=== PATIENT | female | born 1955 | race Caucasian/White ===

== ENCOUNTER 2016-09-15 11:48 | Inpatient (IN) | payer OTHER ==
[~2016-09-15] VITALS: Ht 160 cm; Wt 46.4 kg
[2016-09-15] MEDS ORDERED: morphine 4 MG/ML VIAL IV STA (16:42)
[2016-09-15] MEDS ORDERED: ONDANSETRON 4 MG INJ IV STA (16:42)
[2016-09-15] MEDS ORDERED: SOD CHLORIDE 0.9% 1,000 ML IV STA (16:42)
[2016-09-15 16:58] LABS: BASOPHIL # 0.1 10^3/ul (0.0-0.1); BASOPHILS % 0.8 % (0.0-2.0); EOSINOPHILS # 0.2 10^3/ul (0.0-0.5); EOSINOPHILS % 2.4 % (0.0-7.0); HEMATOCRIT 45.9 % (37.0-47.0); HEMOGLOBIN 15.7 g/dl (12.0-16.0); LYMPHOCYTES # 2.5 10^3/ul (0.8-2.9); LYMPHOCYTES % 37.6 % (15.0-51.0); MEAN CORPUSCULAR HEMOGLOBIN 29.8 pg (29.0-33.0); MEAN CORPUSCULAR HGB CONC 34.3 g/dl (32.0-37.0); MEAN CORPUSCULAR VOLUME 86.9 fl (82.0-101.0); MEAN PLATELET VOLUME 8.9 fl (7.4-10.4); MONOCYTE # 0.6 10^3/ul (0.3-0.9); MONOCYTES % 8.3 % (0.0-11.0); NEUTROPHIL # 3.4 10^3/ul (1.6-7.5); NEUTROPHILS % 50.9 % (39.0-77.0); PLATELET COUNT 234 10^3/UL (140-440); RED BLOOD COUNT 5.28 10^6/ul (4.20-5.40); RED CELL DISTRIBUTION WIDTH 13.6 % (11.5-14.5); UNCORRECTED WBC 6.8 10^3/ul (4.8-10.8); WHITE BLOOD COUNT 6.8 10^3/ul (4.8-10.8)
[2016-09-15] MEDS ORDERED: TRAM-40 PO (17:00)
[2016-09-15 17:01] LABS: ADD UMIC YES; URINE BILIRUBIN (Dip) NEGATIVE (NEGATIVE); URINE BLOOD (Dip) 3+ (NEGATIVE); URINE GLUCOSE (Dip) NEGATIVE (NEGATIVE); URINE KETONES (Dip) TRACE (NEGATIVE); URINE LEUKOCYTE ESTERASE (Dip) 1+ (NEGATIVE); URINE NITRITE (Dip) NEGATIVE (NEGATIVE); URINE TOTAL PROTEIN (Dip) NEGATIVE (NEGATIVE); URINE UROBILINOGEN (Dip) 0.2 E.U./dL (0.1-1.0)
[2016-09-15 17:03] LABS: CONDITION 1
[2016-09-15 17:07] LABS: ALBUMIN 4.5 g/dl (3.3-4.9)
[2016-09-15 17:08] LABS: POTASSIUM 4.2 mmol/L (3.5-5.1); URINE COLOR YELLOW (YELLOW)
[2016-09-15 17:10] LABS: ALBUMIN/GLOBULIN RATIO 1.18; BACTERIA,URINE FEW; BILIRUBIN,INDIRECT 0.1 mg/dl (0-1.1); BILIRUBIN,TOTAL 0.1 mg/dl (0.2-1.3); CREATININE 0.9 mg/dl (0.44-1.00); TOTAL PROTEIN 8.3 g/dl (6.1-8.1); TRANSITIONAL EPI CELLS,URINE MODERATE; URINE RBCS 25-50 /HPF (0)
[2016-09-15 17:11] LABS: CALCIUM 9.7 mg/dl (8.4-10.2)
[2016-09-15] MEDS ORDERED: SOD CHLORIDE 0.9% 100 ML ONE (18:40)
[2016-09-15] MEDS ORDERED: IODIXANOL LOCM 100 ML BTL ONE (18:40)
--- NOTE | 2016-09-15 19:20 | RADRPT ---
PROCEDURE: CT abdomen and pelvis with. contrast. CLINICAL INDICATION: Abdominal pain. TECHNIQUE: IV contrast enhanced CT examination of the abdomen and pelvis, with axial, sagittal and coronal reformatted images. 100 cc Isovue 300 nonionic IV contrast were employed. Automated dose e xposure control was employed. CTDI: 4.22 mGy and DLP: 209.77 mGy-cm. COMPARISON: None. FINDINGS: CT abdomen: Mild fibrotic banding bilateral lung bases, and the lung bases are otherwise clear. The heart size is normal, without pericardial thickening or effusion. The liver is normal in size and density without focal mass or intrahepatic biliary dilatation. The spleen is normal in size and homogeneous in density. The stomach is partially collapsed, but is farooq ssly unremarkable. The pancreas as visualized is normal. The gallbladder and biliary tree are unre markable and there is no evidence for biliary dilatation. The adrenal glands are symmetric and norm al. The kidneys are symmetrically unremarkable as well. Bilateral nonobstructing renal calculi, wit h large calculus measuring up to about 11 mm in the left kidney. The aorta is of normal caliber. Aortic vascular calcifications are present. There is no retroperit hunter lymphadenopathy. The jhonny hepatis region is clear. Change in caliber in the third portion of the duodenum is nonspecific, however, may suggest a degree of impingement between mesenteric venous structures and the abdominal aorta in this region, with a consequent mild degree of obstruction in the third portion of the duodenum. The second portion of t he duodenum is enlarged measuring up to 35 mm in AP diameter and the third portion of the duodenum m easures about 16 mm in AP diameter. In the region of impingement diameter of the third portion of th e duodenum measures 4 mm in the AP dimension. Mild to moderate stool burden in the right and transverse colon. The bowel and mesentery, as visuali zed, are otherwise unremarkable. CT pelvis: The small bowel loops situated within the pelvis are unremarkable. The pelvic organs are normal. T he pelvic sidewalls and inguinal regions are clear. The sigmoid colon contains moderate diverticulo sis; and rectum is unremarkable. No mass, lymphadenopathy, or free fluid is seen. No acute inflamm ation is seen. The appendix is unremarkable. Moderate stool burden in the cecum. The surrounding osseous structures are remarkable for mild degenerative spondylosis of the spine. N o osteolytic or osteoblastic lesion is detected. IMPRESSION: 1. Possible mild degree of intermittent obstruction of the third portion of the duodenum between me senteric venous structures and the abdominal aorta, with abrupt change in caliber between the second and third portions of the duodenum. 2. Moderate stool burden in the colon 3. Nonobstructing renal stones. 4. The appendix is unremarkable. 5. Moderate diverticulosis in the sigmoid colon. 6. Otherwise, no acute process in the abdomen or pelvis. RPTAT: [facility] Physician [place] Date Time Electronically viewed and signed by Physician Jersey on 09/15/2016 19:20 RS/
--- NOTE | 2016-09-15 19:58 | ERA ---
ER Documentation Chief Complaint Date/Time DATE: 09/15/16 TIME: 19:57 Chief Complaint abd pain with nausea/vomiting x2days HPI Patient is a 61-year-old female who comes into the emergency department reporting abdominal pain with nausea and vomiting for 2 days. She states the abdominal pain is predominantly in the right lower quadrant. She states that she has not had a bowel movement for the last several days and has not passed gas for a week. Denies any fever, dysuria, hematuria, flank or back pain. Nothing makes his pain better or worse. She has had a bowel obstruction in the past but is not sure if this pain is the same pain that. She denies any chest pain, shortness of breath, coughing, congestion, sore throat, or otalgia. ROS All systems reviewed and are negative except as per history of present illness. Medications Home Meds Reported Medications Tramadol Hcl* (Ultram*) 50 Mg Tablet, 50 MG PO Q6H Y for PAIN, TAB 09/15/16 Allergies Allergies: Coded Allergies: acetaminophen (Verified Allergy, Mild, itchy, 09/15/16) hydrocodone bit (Verified Allergy, Mild, itchy, 09/15/16) hydrocodone (Unverified Allergy, Unknown, 09/15/16) ketorolac (Unverified Allergy, Unknown, 09/15/16) PMhx/Soc History of Surgery: No Anesthesia Reaction: No Hx Neurological Disorder: No Hx Respiratory Disorders: Yes (COPD) Hx Cardiac Disorders: No Hx Psychiatric Problems: No Hx Miscellaneous Medical Probl: Yes (BACK PAIN) Hx Alcohol Use: No Hx Substance Use: No Hx Tobacco Use: No Smoking Status: Current every day smoker FmHx Family History: No diabetes Physical Exam Vitals Vital Signs Date Time Temp Pulse Resp B/P Pulse Ox O2 Delivery O2 Flow Rate FiO2 09/15/16 19:37 80 15 117/86 97 Room Air 09/15/16 17:03 90 18 130/103 100 Room Air 09/15/16 11:51 98.4 84 22 134/74 98 Physical Exam Const: Well-developed thin female lying on the bed tearful Head: Atraumatic normocephalic Eyes: Normal Conjunctiva ENT: Normal External Ears, Nose and Mouth. Neck: Full range of motion..~ No meningismus. Resp: Clear to auscultation bilaterally Cardio: Regular rate and rhythm, no murmurs Abd: Soft, diffusely tender to palpation, no audible bowel sounds, no rebound , no guarding Skin: No petechiae or rashes Back: No midline or flank tenderness Ext: No cyanosis, or edema Neur: Awake and alert Psych: Normal Mood and Affect Result Diagram: 09/15/16 1650 09/15/16 1650 Results 24 hrs Laboratory Tests Test 09/15/16 16:50 Alanine Aminotransferase (ALT/SGPT) 44IU/L Albumin 4.5g/dl Albumin/Globulin Ratio 1.18 Alkaline Phosphatase 143IU/L Anion Gap 19 Aspartate Amino Transf (AST/SGOT) 34IU/L Basophils # 0.110^3/ul Basophils % 0.8% Blood Urea Nitrogen 17mg/dl Calcium Level 9.7mg/dl Carbon Dioxide Level 31mmol/L Chloride Level 99mmol/L Creatinine 0.90mg/dl Direct Bilirubin 0.00mg/dl Eosinophils # 0.210^3/ul Eosinophils % 2.4% Globulin 3.80g/dl Glucose Level 77mg/dl Hematocrit 45.9% Hemoglobin 15.7g/dl Indirect Bilirubin 0.1mg/dl Lipase 30U/L Lymphocytes # 2.510^3/ul Lymphocytes % 37.6% Mean Corpuscular Hemoglobin 29.8pg Mean Corpuscular Hemoglobin Concent 34.3g/dl Mean Corpuscular Volume 86.9fl Mean Platelet Volume 8.9fl Monocytes # 0.610^3/ul Monocytes % 8.3% Neutrophils # 3.410^3/ul Neutrophils % 50.9% Nucleated Red Blood Cells # 0.010^3/ul Nucleated Red Blood Cells % 0.0/100WBC Platelet Count 51941^3/UL Potassium Level 4.2mmol/L Red Blood Count 5.2810^6/ul Red Cell Distribution Width 13.6% Sodium Level 145mmol/L Total Bilirubin 0.1mg/dl Total Protein 8.3g/dl Urine Bacteria FEW Urine Bilirubin NEGATIVE Urine Clarity SLIGHTLY CLOUDY Urine Color YELLOW Urine Glucose NEGATIVE% Urine Hemoglobin 3+ Urine Ketones TRACE Urine Leukocyte Esterase 1+ Urine Microscopic RBC 25-50/HPF Urine Microscopic WBC 10-25/HPF Urine Nitrite NEGATIVE Urine Specific [place] 1.025 Urine Total Protein NEGATIVE Urine Transitional Epithelial Cells MODERATE Urine Urobilinogen 0.2 E.U./dL Urine pH 5.5 White Blood Count 6.810^3/ul Current Medications Medications (Trade) Dose Ordered Sig/Roxy Route PRN Reason Start Time Stop Time Status Last Admin Dose Admin Sodium Chloride (NS) 1,000 ml @ 1,000 mls/hr Q1H STAT IV 09/15/16 16:42 09/15/16 17:41 DC 09/15/16 16:53 Morphine Sulfate (morphine) 4 mg ONCE STAT IV 09/15/16 16:42 09/15/16 16:44 DC 09/15/16 16:53 Ondansetron HCl (Zofran Inj) 4 mg ONCE STAT IV 09/15/16 16:42 09/15/16 16:44 DC 09/15/16 16:53 IV Flush 10 ml 10 ml STK-MED ONCE .ROUTE 09/15/16 18:40 09/15/16 18:41 DC 09/15/16 19:14 Sodium Chloride (NS) 100 ml @ ud STK-MED ONCE .ROUTE 09/15/16 18:40 09/15/16 18:41 DC 09/15/16 19:14 Iodixanol (Visipaque Locm) 100 ml STK-MED ONCE .ROUTE 09/15/16 18:40 09/15/16 18:41 DC 09/15/16 19:15 Procedures/MDM CT of the abdomen and pelvis was interpreted as a small bowel obstruction. 1999: An NG tube has been ordered to low wall suction. I have consulted her primary care physician for admission and further management of the patient. Departure Diagnosis: Primary Impression: Small bowel obstruction Additional Impression: Abdominal pain Qualified Code: R10.84 - Generalized abdominal pain Condition: HASEEB Ponce Sep 15, 2016 19:58
[2016-09-15] MEDS ORDERED: morphine 2 MG INJ IV PRN (20:30)
[2016-09-15] MEDS ORDERED: ALBUTEROL/IPRATROPIUM (NEB) 3 ML AMP HHN PRN (20:30)
[2016-09-15] MEDS ORDERED: NACL 0.9% 3 ML SYG IV SCH (20:30)
[2016-09-15] MEDS ORDERED: LORAZEPAM 2 MG INJ IV ONE (21:30)
--- NOTE | 2016-09-15 22:08 | RADRPT ---
PROCEDURE: XR Chest. CLINICAL INDICATION: Nasogastric tube placement. TECHNIQUE: Single frontal view of the chest was obtained COMPARISON: Chest dated 11/25/2015. FINDINGS: Nasogastric tube in place with tip and side port in the proximal stomach. Mild cardiomegaly. Mild bibasilar atelectasis versus airspace disease. There is no pleural effusion or pneumothorax. IMPRESSION: Nasogastric tube in place with tip and side port in the proximal stomach, and consider advancing sergio e about 5 cm and re-imaging. RPTAT: [facility] Physician [place] Date Time Electronically viewed and signed by Physician Jersey on 09/15/2016 22:07 RS/
[2016-09-15 22:45] VITALS: BP 125/75; PULSE 82; RESP 19
[2016-09-15 23:00] VITALS: Ht 160 cm; Wt 46.4 kg
[2016-09-15] MEDS ORDERED: VITAMIN A & D 5 GM OINT PACKET TOP ONE (23:04)
[2016-09-15] MEDS: D5W-0.45 NACL + KCL 20 MEQ 1,000 ML IV SCH (23:09)
[2016-09-15] MEDS: HYDROmorphONE 2 MG/ML SYG IV PRN (23:41)
[2016-09-16 00:20] VITALS: BP_SYST 126; BP_SYST 146; BP_DIAS 53; RESP 18
[2016-09-16] MEDS: HYDROmorphONE 2 MG/ML SYG IV PRN ×5 (03:19→20:14)
[2016-09-16 03:30] VITALS: BP 124/68; PULSE 80
[2016-09-16] MEDS ORDERED: HYDROmorphONE 2 MG/ML SYG IV PRN (04:30)
[2016-09-16] MEDS: PANTOPRAZOLE 40 MG INJ IV SCH (05:10)
[2016-09-16] MEDS: LORAZEPAM 2 MG INJ IV PRN ×2 (05:11→21:56)
[2016-09-16 06:04] LABS: INR 0.94; PARTIAL THROMBOPLASTIN TIME 29.4 Sec (25.0-35.0); PROTIME 12.6 Sec (12.2-14.2)
[2016-09-16 06:07] LABS: BASOPHILS % 0.6 % (0.0-2.0); EOSINOPHILS # 0.3 10^3/ul (0.0-0.5); EOSINOPHILS % 4.6 % (0.0-7.0); HEMATOCRIT 42.7 % (37.0-47.0); HEMOGLOBIN 14.3 g/dl (12.0-16.0); LYMPHOCYTES # 1.9 10^3/ul (0.8-2.9); LYMPHOCYTES % 31.9 % (15.0-51.0); MEAN CORPUSCULAR HEMOGLOBIN 29.5 pg (29.0-33.0); MEAN CORPUSCULAR HGB CONC 33.6 g/dl (32.0-37.0); MEAN CORPUSCULAR VOLUME 87.7 fl (82.0-101.0); MEAN PLATELET VOLUME 9.6 fl (7.4-10.4); MONOCYTE # 0.5 10^3/ul (0.3-0.9); MONOCYTES % 8.7 % (0.0-11.0); NEUTROPHIL # 3.2 10^3/ul (1.6-7.5); NEUTROPHILS % 54.2 % (39.0-77.0); PLATELET COUNT 192 10^3/UL (140-440); RED BLOOD COUNT 4.87 10^6/ul (4.20-5.40); RED CELL DISTRIBUTION WIDTH 13.9 % (11.5-14.5); UNCORRECTED WBC 5.9 10^3/ul (4.8-10.8); WHITE BLOOD COUNT 5.9 10^3/ul (4.8-10.8)
--- NOTE | 2016-09-16 06:16 | HP ---
DATE OF ADMISSION: 09/15/2016 CHIEF COMPLAINT: Abdominal pain. REASON FOR ADMISSION: Small-bowel obstruction. HISTORY OF PRESENT ILLNESS: This is a 61-year-old female with a past medical history of COPD, histo ry of previous fractured humerus in 01/2012, chronic back pain, presented with abdominal pain. She had initial workup done in the emergency room including a CT abdomen and pelvis with contrast that was suspicious for a small bowel obstructions. The patient had NG tube placement and she is getting admitted to the med/surg floor for IV fluids and general surgery consultation. REVIEW OF SYSTEMS: As per HPI. Positive for abdominal pain, nausea. Other 12 point review of syst ems has been obtained and is negative except what is mentioned in the history of present illness. PAST MEDICAL HISTORY: COPD, history of chronic back pain. PAST SURGICAL HISTORY: History of humerus fracture in January 2012. SOCIAL HISTORY: No smoking, alcohol or recreational drug use. FAMILY HISTORY: Not available. PHYSICAL EXAMINATION: VITAL SIGNS: Temperature is 98.4, heart rate 80, respirations 15, blood pressure 117/86, saturation 97% on room air. GENERAL: Awake, alert, in no distress. HEENT: Normal. Oropharynx clear. NECK: No JVD, no lymphadenopathy. LUNGS: Clear to auscultation. No crackles, no wheezes. HEART: S1, S2, with regular rhythm, no murmur. ABDOMEN: Soft, minimally tender to palpation diffusely. No crackles, no rebound. Bowel sounds are hypoactive. EXTREMITIES: No clubbing, cyanosis, or edema. NEUROLOGICAL: Nonfocal, intact. PSYCHIATRIC: Appropriate affect and mood. LABORATORY DATA/DIAGNOSTIC IMAGING 1. CT abdomen and pelvis with contrast suspicious for small-bowel obstruction. 2. WBC 6.8, hemoglobin 15.7, platelet count 234. Sodium 145, potassium 4.2, chloride 99, bicarbona te 31, BUN 7, creatinine 0.9, glucose 77, calcium 9.7. LFTs are normal. Albumin 4.5. IMPRESSION: This is a 61-year-old female with: 1. Small-bowel obstruction. 2. Intractable abdominal pain secondary to small-bowel obstruction. 3. History of chronic obstructive pulmonary disease. 4. History of chronic back pain. PLAN: 1. Admission to the med/surg floor. IV fluids, D5 half NS with 20 mEq KCl to run at 75 mL per hour . 2. N.p.o. 3. General surgery consultation, Dr. Caleb Hanson to see. 4. Protonix for GI prophylaxis, SCDs for DVT prophylaxis. Please note that the patient was previously seen in the emergency room and she is getting admitted t o med/surg floor for further workup. Dictated By: YAO MICHAEL MD, KP/DOMINIC Conf#: [id number] DID#: [id number]
[2016-09-16 06:17] LABS: ALBUMIN 3.6 g/dl (3.3-4.9)
[2016-09-16 06:18] LABS: POTASSIUM 4.2 mmol/L (3.5-5.1)
[2016-09-16 06:20] LABS: BILIRUBIN,INDIRECT 0.2 mg/dl (0-1.1); BILIRUBIN,TOTAL 0.2 mg/dl (0.2-1.3); CREATININE 0.75 mg/dl (0.44-1.00)
[2016-09-16 06:21] LABS: ALBUMIN/GLOBULIN RATIO 1.12; CALCIUM 8.7 mg/dl (8.4-10.2); TOTAL PROTEIN 6.8 g/dl (6.1-8.1)
[2016-09-16 06:27] LABS: CONDITION 1
[2016-09-16 07:59] VITALS: BP 128/85; RESP 19
[2016-09-16] MEDS: D5W-0.45 NACL + KCL 20 MEQ 1,000 ML IV SCH ×3 (09:38→22:58)
--- NOTE | 2016-09-16 11:19 | PN ---
Date/Time of Note Date/Time of Note DATE: 09/16/16 TIME: 11:18 Assessment/Plan VTE Prophylaxis VTE Prophylaxis Intervention: SCD's Lines/Catheters IV Catheter Type (from Nrs): Peripheral IV Urinary Cath still in place: No Assessment/Plan Assessment/Plan 1. Small-bowel obstruction. 2. Intractable abdominal pain secondary to small-bowel obstruction. 3. History of chronic obstructive pulmonary disease. 4. History of chronic back pain. PLAN: pain control pt c/o headhache, currently she is NPO, she is allegic to tyelnol will wait until General surgery to evaluate pt will follow up SCD for DVT prophylaxis Subjective 24 Hr Interval Summary Free Text/Dictation c/o headache,abdominal pain, requesting pain meds more often Exam/Review of Systems Vital Signs Vitals Vital Signs Date Time Temp Pulse Resp B/P Pulse Ox O2 Delivery O2 Flow Rate FiO2 09/16/16 07:59 98.1 79 19 128/85 98 09/16/16 05:42 21 09/16/16 03:30 Room Air Intake and Output 09/15/16 09/15/16 09/16/16 14:59 22:59 06:59 Intake Total 450 ml Output Total 600 ml Balance -150 ml Exam GENERAL: Awake, alert, in no distress. HEENT: Normal. Oropharynx clear. NECK: No JVD, no lymphadenopathy. LUNGS: Clear to auscultation. No crackles, no wheezes. HEART: S1, S2, with regular rhythm, no murmur. ABDOMEN: Soft, minimally tender to palpation diffusely. No crackles, no rebound. Bowel sounds are hypoactive. EXTREMITIES: No clubbing, cyanosis, or edema. NEUROLOGICAL: Nonfocal, intact. PSYCHIATRIC: Appropriate affect and mood. Results Result Diagram: 09/16/16 0428 09/16/16 0428 Results 24 hrs Laboratory Tests Test 09/15/16 16:50 09/16/16 04:28 Alanine Aminotransferase (ALT/SGPT) 44 40 Albumin 4.5 3.6 Albumin/Globulin Ratio 1.18 1.12 Alkaline Phosphatase 143 H 108 Anion Gap 19 H 15 Aspartate Amino Transf (AST/SGOT) 34 28 Basophils # 0.1 0.0 Basophils % 0.8 0.6 Blood Urea Nitrogen 17 11 Calcium Level 9.7 8.7 Carbon Dioxide Level 31 28 Chloride Level 99 104 Creatinine 0.90 0.75 Direct Bilirubin 0.00 0.00 Eosinophils # 0.2 0.3 Eosinophils % 2.4 4.6 Globulin 3.80 H 3.20 Glucose Level 77 98 Hematocrit 45.9 42.7 Hemoglobin 15.7 14.3 Indirect Bilirubin 0.1 0.2 Lipase 30 Lymphocytes # 2.5 1.9 Lymphocytes % 37.6 31.9 Mean Corpuscular Hemoglobin 29.8 29.5 Mean Corpuscular Hemoglobin Concent 34.3 33.6 Mean Corpuscular Volume 86.9 87.7 Mean Platelet Volume 8.9 9.6 Monocytes # 0.6 0.5 Monocytes % 8.3 8.7 Neutrophils # 3.4 3.2 Neutrophils % 50.9 54.2 Nucleated Red Blood Cells # 0.0 0.0 Nucleated Red Blood Cells % 0.0 0.0 Platelet Count 234 # 192 Potassium Level 4.2 4.2 Red Blood Count 5.28 4.87 Red Cell Distribution Width 13.6 13.9 Sodium Level 145 H 143 Total Bilirubin 0.1 L 0.2 Total Protein 8.3 H 6.8 # Urine Bacteria FEW Urine Bilirubin NEGATIVE Urine Clarity SLIGHTLY CLOUDY Urine Color YELLOW Urine Glucose NEGATIVE Urine Hemoglobin 3+ H Urine Ketones TRACE H Urine Leukocyte Esterase 1+ H Urine Microscopic RBC 25-50 Urine Microscopic WBC 10-25 Urine Nitrite NEGATIVE Urine Specific [place] 1.025 Urine Total Protein NEGATIVE Urine Transitional Epithelial Cells MODERATE Urine Urobilinogen 0.2 E.U./dL Urine pH 5.5 White Blood Count 6.8 5.9 Activated Partial Thromboplast Time 29.4 INR International Normalized Ratio 0.94 Prothrombin Time 12.6 Prothrombin Time Ratio 1.0 Medications Medications Current Medications Potassium Chloride/Dextrose/ Sod Cl (D5-1/2ns + KCl 20 Meq) 1,000 ml @ 75 mls/ hr [id number] IV Last administered on 09/15/16 23:09; Admin Dose 75 MLS/HR; Start 09/15/16 at 20:18 Ondansetron HCl (Zofran Inj) 4 mg Q4H PRN IV NAUSEA AND/OR VOMITING; Start 09/15 at 20:30 Pantoprazole (Protonix Iv) 40 mg DAILY@06 IV Last administered on 09/16/16 05: 10; Admin Dose 40 MG; Start 09/16/16 at 06:00 Lorazepam (Ativan) 1 mg Q4H PRN IV ANXIETY Last administered on 09/16/16 05:11 ; Admin Dose 1 MG; Start 09/16/16 at 03:30 Hydromorphone HCl (Dilaudid) 2 mg Q3H PRN IV PAIN Last administered on 09:40; Admin Dose 2 MG; Start 09/16/16 at 04:30 YAO MICHAEL MD Sep 16, 2016 11:19
--- NOTE | 2016-09-16 11:25 | EN ---
Date/Time of Note Date/Time of Note DATE: 09/16/16 TIME: 11:20 Event Note Medicine Medicine Event Note pt was admitted yesterday with Small bowel obstruction, General surgery was consulted. Pt has SBO but she is constantly asking for dilaudid for pain control. she requested to switch from morphine to dialudid overnight, which was done. Nurse has been called multiple times by patient overnight for IV pain medications.Nurse tried to reach me around 1.30 am- I called back around 1.45-1.50 Am- was transferred to Nurse phone but then it bounced back to clerical secretary- was on hold for few minutes. Nursing Feller Machine Operator tried to reach me and then I communicated with Nurse about pain issues. Pt had no objective signs of pain( HR normal, BP stable, Saturation normal RR normal). Discussed with General surgery overnight and recommendation not to give any more escalating dose of pain meds until General surgery evaluation. she is allegic to tylenol. c/o headache, can not give any PO meds since she is NPO for SBO and she is allergic to Tylenol YAO MICHAEL MD Sep 16, 2016 11:25
--- NOTE | 2016-09-16 14:39 | PN ---
Date/Time of Note Date/Time of Note DATE: 09/16/16 TIME: 14:29 Assessment/Plan Lines/Catheters IV Catheter Type (from Nrs): Peripheral IV Barcenas in Place (from Nrs): No Assessment/Plan Chief Complaint/Hosp Course 1. Abdominal pain, N/V, ? 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 COPD/Emphysema hx -medical management 3. Diverticulosis -diet/lifestyle optimization 4. Renal stones -judicious fluid management 5. Addicted pain medications/Tramadol -medical management 6. Anxiety/?Psychiatric disorder -medical/psych management Thank you, Problems: Subjective 24 Hr Interval Summary Wants dilaudid. No n/v. Pain, generalized. No f/c. No cp/sob. No cough. No kumar/dizzy/visual or neuro changes. No dysuria. Exam/Review of Systems Vital Signs Vitals Vital Signs Date Time Temp Pulse Resp B/P Pulse Ox O2 Delivery O2 Flow Rate FiO2 09/16/16 07:59 98.1 79 19 128/85 98 09/16/16 05:42 21 09/16/16 03:30 Room Air Intake and Output 09/15/16 09/15/16 09/16/16 14:59 22:59 06:59 Intake Total 450 ml Output Total 620 ml Balance -170 ml Exam Constitutional: alert, oriented, No distress Psych: nl mood/affect, No anxiety, No confusion Head: atraumatic, normocephalic Eyes: EOMI, PERRL, nl conjunctiva, No icteric ENMT: nl external ears & nose, nl lips & teeth, No mucosa pink and moist Neck: non-tender, supple, No jvd Respiratory: normal air movement, No congested cough, No diminished breath sounds, No labored breathing Cardiovascular: nl pulses, regular rate and rhythm, No edema Gastrointestinal: non-tender, soft, No distended, No rebound or guarding Musculoskeletal: nl extremities to inspection, No joint tenderness Extremities: normal pulses, No calf tenderness, No edema Neurological: nl speech, nl strength Skin: nl turgor, No diaphoresis, No rash or lesions Lymph: nl lymph nodes Results Result Diagram: 09/16/16 0428 09/16/16 0428 NADINE LOVELL MD Sep 16, 2016 14:38
[2016-09-16] MEDS ORDERED: DIATR MEGLU/DIATRIZOATE SODIUM 120 ML BTL ONE (17:44)
--- NOTE | 2016-09-16 18:47 | CONS ---
DATE OF ADMISSION: 09/15/2016 DATE OF CONSULTATION: 09/15/2016 TYPE OF CONSULTATION: Surgical. REFERRING PHYSICIAN: Colton Echeverria MD CHIEF COMPLAINT 1. Abdominal pain. 2. Nausea, vomiting. 3. 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 4. Weight loss. 5. Chronic abdominal pain. 6. Recent abdominal surgery at [facility] a few months ago. HISTORY OF PRESENT ILLNESS: Ms. Debora Card is a 61-year-old female with multiple histories of ab dominal pain and obstruction, who most recently was at [facility] and had an exploratory laparotomy a few months ago. She presents with nausea, vomiting and abdominal pain. She denies any chest pain or shortness of breath. She denies any visual or neurologic changes. She denies any dysuria or va ginal discharge. She denies any fevers or chills. No trauma or sick contacts. The patient has bee n losing weight. She has constipation, but is passing flatus. In the emergency room, she is found to be afebrile with stable and normal vitals, labs are within no rmal and a CT scan of the abdomen and pelvis identifies possible mild degree of intermittent obstruc tion of the third portion of the duodenum between mesenteric venous structures and the abdominal aor ta with abrupt change in caliber between the second and third portions of the duodenum. Moderate st ool burden in the colon. Nonobstructing renal stones. The appendix is unremarkable. There is mode rate diverticulosis in the sigmoid, but otherwise no acute processes. The patient is admitted for further care and treatment. Surgical consult was obtained. PAST MEDICAL HISTORY: 1. Chronic pain. 2. Chronic abdominal pain. 3. Recurrent small bowel obstructions. 4. Diverticulosis. 5. Hypernatremia. 6. COPD. 7. Constipation. 8. Back pain. 9. Bilateral nonobstructing renal calculi. 10. Emphysema. 11. Fractured humerus in January 2012. PAST SURGICAL HISTORY: 1. Ovarian cystectomy. 2. Bowel obstruction surgery of unknown detail at [facility] a few months ago. MEDICATIONS: As per MAR. ALLERGIES: As per chart. SOCIAL HISTORY: Reports history of drug to use at the age of 17; however, denies alcohol, tobacco, or current drug abuse. The patient is reportedly homeless; however, she reports that she lives with a friend. FAMILY HISTORY: Noncontributory. REVIEW OF SYSTEMS: A 12-point review of systems negative unless addressed in the HPI. PHYSICAL EXAMINATION: VITAL SIGNS: Temperature is 97.8, pulse 82, blood pressure 124/75. GENERAL: No acute distress, comfortable, but keeps asking for "Aye", meaning she wants Dilaudid . HEENT: Pupils equal, reactive. No scleral icterus. Mucous membranes somewhat dry. NG tube in obinna ce. NECK: No crepitus, no JVD. Trachea midline. CARDIAC: S1, S2 present. ABDOMEN: Soft, nondistended, nontender. No rebound, no guarding, not rigid. There is a lower midl ine incision. EXTREMITIES: No edema. VASCULAR: Capillary refill is 2 seconds. NEUROLOGIC: Alert, oriented, moves all 4 extremities grossly. LABORATORY AND RADIOGRAPHIC DATA: As per chart and HPI. ASSESSMENT AND PLAN: Ms. Debora Card is a 61-year-old female. 1. 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 She also has a recent history of abdominal exploration for bowel obstruction at [facility]. Will obtain medical records and imaging from [facility]. NG tube. Fluid hydration. Will be nefit from upper GI small bowel follow through study. Will also benefit from GI consultation for ev entual EGD. 2. Chronic obstructive pulmonary disease and emphysema. Continue pulmonary toilet and medical opti mization. 3. Bilateral renal stones, nonobstructing. Continue judicious fluid management. 4. History of chronic back and abdominal pain. Continue medical and pain service management. Thank you very much for consulting me in this patient's care. Dictated By: NADINE BENEDICT/DOMINIC Conf#: [id number] DID#: [id number]
[2016-09-16 20:00] VITALS: BP 148/89; PULSE 87; RESP 20
[2016-09-16] MEDS: ONDANSETRON 4 MG INJ IV PRN (20:14)
--- NOTE | 2016-09-16 21:03 | RADRPT ---
PROCEDURE: XR small-bowel follow-through. CLINICAL INDICATION: Abdominal pain, possible duodenal obstruction seen on prior CT. TECHNIQUE: Multiple overhead radiographs of the abdomen were obtained before after the uncomplicat ed injection of 240 cc oral gastrografin contrast through a nasogastric tube. COMPARISON: CT of the abdomen and pelvis dated 09/15/2016. FINDINGS: The testboard operator image demonstrates a nasogastric tube with its tip in the stomach. Subcentimeter calcifica tions seen in the abdomen bilaterally correspond to known nonobstructing renal stones. A small metal lic opacity projecting over the pelvis lies external to the patient on the prior CT. There is a mode rate volume of retained stool throughout the colon. Immediately after injection of Gastrografin through the nasogastric tube, contrast is seen within th e stomach. Subsequent images demonstrate normal antegrade passage of contrast through the small bow el. The contrast reaches the cecum approximately 2 hours after contrast administration. There are no dilated small bowel loops. The gastric and small bowel mucosal fold patterns are normal. IMPRESSION: 1. No small-bowel obstruction. The small bowel transit time was approximately 2 hours. 2. Moderate volume of retained stool throughout the colon. 3. Bilateral renal calculi. RPTAT: HTAR .Tank Tavarez MD, Date Time Electronically viewed and signed by .Tank Tavarez MD, on 09/16/2016 21:03 .R/
[2016-09-17] MEDS: HYDROmorphONE 2 MG/ML SYG IV PRN ×6 (02:39→22:26)
[2016-09-17] MEDS: D5W-0.45 NACL + KCL 20 MEQ 1,000 ML IV SCH ×3 (05:32→22:27)
[2016-09-17] MEDS: PANTOPRAZOLE 40 MG INJ IV SCH (05:38)
[2016-09-17 07:26] VITALS: BP 106/64; RESP 18
[2016-09-17] MEDS: ONDANSETRON 4 MG INJ IV PRN (08:29)
--- NOTE | 2016-09-17 11:57 | PN ---
Date/Time of Note Date/Time of Note DATE: 09/17/16 TIME: 11:55 Assessment/Plan VTE Prophylaxis VTE Prophylaxis Intervention: SCD's Lines/Catheters IV Catheter Type (from Nrsg): Peripheral IV Urinary Cath still in place: No Assessment/Plan Assessment/Plan 1. Small-bowel obstruction. recurrent due to Mesenteric artery syndrome 2. Intractable abdominal pain secondary to small-bowel obstruction. 3. History of chronic obstructive pulmonary disease. 4. History of chronic back pain. 5. h/o recent abdominal surgery at [place] few months ago PLAN: pain control pt c/o headhache, currently she is NPO, she is allegic to tyelnol s/p General surgery cosultattion- called GI consult also SCD for DVT prophylaxis Subjective 24 Hr Interval Summary Free Text/Dictation c/o abdominal pain, on NG tube suction, Bp stable Exam/Review of Systems Vital Signs Vitals Vital Signs Date Time Temp Pulse Resp B/P Pulse Ox O2 Delivery O2 Flow Rate FiO2 09/17/16 07:26 98.3 82 18 106/64 96 09/16/16 20:00 Room Air 09/16/16 05:42 21 Intake and Output 09/16/16 09/16/16 09/17/16 14:59 22:59 06:59 Intake Total 250 ml 700 ml Output Total 250 ml 100 ml Balance 0 ml 600 ml Exam GENERAL: Awake, alert, in no distress. HEENT: Normal. Oropharynx clear. NECK: No JVD, no lymphadenopathy. LUNGS: Clear to auscultation. No crackles, no wheezes. HEART: S1, S2, with regular rhythm, no murmur. ABDOMEN: Soft, minimally tender to palpation diffusely. No crackles, no rebound. Bowel sounds are hypoactive. EXTREMITIES: No clubbing, cyanosis, or edema. NEUROLOGICAL: Nonfocal, intact. PSYCHIATRIC: Appropriate affect and mood. Results Result Diagram: 09/16/168 09/16/16427 Medications Medications Current Medications Potassium Chloride/Dextrose/ Sod Cl (D5-1/2ns + KCl 20 Meq) 1,000 ml @ 75 mls/ hr [id number] IV Last administered on 09/17/16t 05:32; Admin Dose 75 MLS/HR; Start 09/15/16 at 20:18 Ondansetron HCl (Zofran Inj) 4 mg Q4H PRN IV NAUSEA AND/OR VOMITING Last administered on 09/17/16 08:29; Admin Dose 4 MG; Start 09/15/16 at 20:30 Pantoprazole (Protonix Iv) 40 mg DAILY@06 IV Last administered on 09/17/16 05: 38; Admin Dose 40 MG; Start 09/16/16 at 06:00 Lorazepam (Ativan) 1 mg Q4H PRN IV ANXIETY Last administered on 09/16/16 21:56 ; Admin Dose 1 MG; Start 09/16/16 at 03:30 Hydromorphone HCl (Dilaudid) 2 mg Q3H PRN IV PAIN Last administered on 11:27; Admin Dose 2 MG; Start 09/16/16 at 04:30 YAO MICHAEL MD Sep 17, 2016 11:57
--- NOTE | 2016-09-17 12:48 | CONS ---
Date/Time of Note Date/Time of Note DATE: 09/17/16 TIME: 12:31 Assessment/Plan Assessment/Plan Chief Complaint/Hosp Course Impression: 1. Small-bowel obstruction. ddx includes adhesions, superior mesenteric artery syndrome, narcotic use leading to functional ileus 2. Intractable abdominal pain secondary to s#1 3. History of chronic obstructive pulmonary disease. 4. History of chronic back pain. 5. h/o recent abdominal surgery at [place] few months ago Recommendation: 1. pain control 2. ok from GI perspective to try clear liquid diet if ok with primary and surgery 3. EGD offered to patient but patient declined stating that she is afraid of procedures despite that I counseled her that it is a safe procedure to evaluate her obstructive symptoms. 4. consider CT angiogram to better evaluate SMA syndrome 5. Dr. Conway to resume care of this patient to see if pt is willing to undergo EGD for evaluation. If patient continues to refuse EGD, and records at [facility] reviewed and cause of pt's abdominal pain, n/v still not clarified, then one should do CT angiogram to r/o SMA syndrome. Problems: Consultation Date/Type/Reason Admit Date/Time Sep 15, 2016 at 20:22 Type of Consultation: Gi Reason for Consultation nausea, vomiting, abdominal pain Hx of Present Illness 61-year-old female with a past medical history of COPD, history of previous fractured humerus in 01/2012, chronic back pain, who is admitted with abdominal pain and possible SBO. She had initial workup done in the emergency room including a CT abdomen and pelvis with contrast that was suspicious for a small bowel obstructions at 3rd portion of duodenum between mesenteric venous structures and abdominal aorta. Follow up SBFT did not show obstruction. No f, c, cp, sob, dysuria, neurologic changes, visual changes, dysuria, vaginal discharge, skin rash. All point ROS administered, pertinent positives and negatives in HPI otherwise negative. Psychological: nl mood/affect, No anxiety, No confusion Past Medical History chronic rincon syndrome, recurrent SBO, diverticulossi, copd, constipation, b/l nonobstructing renal calculi, emphysema Past Surgical History 1. ex lap at [facility] for unknown indication or procedure performed 2. register of deeds surgery of unknown type Family History Significant Family History: no pertinent family hx Social History Alcohol Use: occasionally Smoking Status: Current some day smoker Drug Use: marijuana Other Social History homeless Exam/Review of Systems Vital Signs Vitals Vital Signs Date Time Temp Pulse Resp B/P Pulse Ox O2 Delivery O2 Flow Rate FiO2 09/17/16 07:26 98.3 82 18 106/64 96 09/16/16 20:00 Room Air 09/16/16 05:42 21 Intake and Output 09/16/16 09/16/16 09/17/16 15:00 23:00 07:00 Intake Total 250 ml 700 ml Output Total 250 ml 100 ml Balance 0 ml 600 ml Exam Constitutional: alert, oriented, well developed Psych: anxiety, no complaints Head: atraumatic, normocephalic Eyes: EOMI, nl conjunctiva, nl lids, nl sclera ENMT: mucosa pink and moist, nl external ears & nose, nl lips & teeth, nl nasal mucosa & septum Neck: non-tender, supple Respiratory: clear to auscultation, normal air movement Cardiovascular: nl pulses, regular rate and rhythm Gastrointestinal: bowel sounds, non-tender, soft Neurological: nl mental status, nl speech, nl strength Results Result Diagram: 09/16/168 09/16/16 0428 Medications Medications Current Medications Potassium Chloride/Dextrose/ Sod Cl (D5-1/2ns + KCl 20 Meq) 1,000 ml @ 75 mls/ hr [id number] IV Last administered on 09/17/16 05:32; Admin Dose 75 MLS/HR; Start 09/15/16 at 20:18 Ondansetron HCl (Zofran Inj) 4 mg Q4H PRN IV NAUSEA AND/OR VOMITING Last administered on 09/17/16 08:29; Admin Dose 4 MG; Start 09/15/16 at 20:30 Pantoprazole (Protonix Iv) 40 mg DAILY@06 IV Last administered on 09/17/16 05: 38; Admin Dose 40 MG; Start 09/16/16 at 06:00 Lorazepam (Ativan) 1 mg Q4H PRN IV ANXIETY Last administered on 09/16/16 21:56 ; Admin Dose 1 MG; Start 09/16/16 at 03:30 Hydromorphone HCl (Dilaudid) 2 mg Q3H PRN IV PAIN Last administered on 11:27; Admin Dose 2 MG; Start 09/16/16 at 04:30 BRITTNY PORTILLO MD Sep 17, 2016 12:41
[2016-09-17] MEDS: LORAZEPAM 2 MG INJ IV PRN ×2 (13:30→19:01)
[2016-09-17 19:36] VITALS: BP 138/75; RESP 20
--- NOTE | 2016-09-17 23:34 | PN ---
Date/Time of Note Date/Time of Note DATE: 09/17/16 TIME: 23:34 Assessment/Plan Lines/Catheters IV Catheter Type (from Nrs): Peripheral IV Barcenas in Place (from Nrs): No Assessment/Plan Chief Complaint/Hosp Course 1. Abdominal pain, N/V, ? ileus vs obstruction (SMA syndrome). SBFT negative. Refused EGD. -diet -dc planning 2. COPD/Emphysema hx -medical management 3. Diverticulosis -diet/lifestyle optimization 4. Renal stones -judicious fluid management 5. Addicted pain medications/Tramadol -medical management 6. Anxiety/?Psychiatric disorder -medical/psych management Thank you, Problems: Subjective 24 Hr Interval Summary Wants dilaudid. No n/v. Pain, generalized. No f/c. No cp/sob. No cough. No kumar/dizzy/visual or neuro changes. No dysuria. SBFT negative. Refused EGD. Exam/Review of Systems Vital Signs Vitals Vital Signs Date Time Temp Pulse Resp B/P Pulse Ox O2 Delivery O2 Flow Rate FiO2 09/18/16 19:55 98.2 85 18 145/77 96 09/16/16 20:00 Room Air 09/16/16 05:42 21 Intake and Output 09/17/16 09/17/16 09/18/16 14:59 22:59 06:59 Intake Total 775 ml 900 ml Output Total 100 ml 300 ml Balance 675 ml 600 ml Exam Free Text/Dictation Wants dilaudid. No n/v. Pain, generalized. No f/c. No cp/sob. No cough. No kumar/dizzy/visual or neuro changes. No dysuria. Exam/Review of Systems Vital Signs Vitals Vital Signs Date Time Temp Pulse Resp B/P Pulse Ox O2 Delivery O2 Flow Rate FiO2 09/16/16 07:59 98.1 79 19 128/85 98 09/16/16 05:42 21 09/16/16 03:30 Room Air Intake and Output 09/15/16 09/15/16 09/16/16 14:59 22:59 06:59 Intake Total 450 ml Output Total 620 ml Balance -170 ml Exam Constitutional: alert, oriented, No distress Psych: nl mood/affect, No anxiety, No confusion Head: atraumatic, normocephalic Eyes: EOMI, PERRL, nl conjunctiva, No icteric ENMT: nl external ears & nose, nl lips & teeth, No mucosa pink and moist Neck: non-tender, supple, No jvd Respiratory: normal air movement, No congested cough, No diminished breath sounds, No labored breathing Cardiovascular: nl pulses, regular rate and rhythm, No edema Gastrointestinal: non-tender, soft, No distended, No rebound or guarding Musculoskeletal: nl extremities to inspection, No joint tenderness Extremities: normal pulses, No calf tenderness, No edema Neurological: nl speech, nl strength Skin: nl turgor, No diaphoresis, No rash or lesions Lymph: nl lymph nodes Results Result Diagram: 09/18/16 0738 09/18/16 0738 NADINE LOVELL MD Sep 17, 2016 23:34
[2016-09-18] MEDS: LORAZEPAM 2 MG INJ IV PRN ×2 (00:47→12:20)
[2016-09-18] MEDS: PANTOPRAZOLE 40 MG INJ IV SCH (04:38)
[2016-09-18] MEDS: HYDROmorphONE 2 MG/ML SYG IV PRN ×5 (04:38→18:32)
[2016-09-18 08:09] LABS: POTASSIUM 4.6 mmol/L (3.5-5.1)
[2016-09-18 08:10] VITALS: BP 129/80; RESP 20
[2016-09-18 08:10] LABS: BASOPHILS % 0.1 % (0.0-2.0); EOSINOPHILS # 0.1 10^3/ul (0.0-0.5); EOSINOPHILS % 1.3 % (0.0-7.0); HEMATOCRIT 45.3 % (37.0-47.0); HEMOGLOBIN 15.3 g/dl (12.0-16.0); LYMPHOCYTES # 1.1 10^3/ul (0.8-2.9); LYMPHOCYTES % 15.5 % (15.0-51.0); MEAN CORPUSCULAR HEMOGLOBIN 29.2 pg (29.0-33.0); MEAN CORPUSCULAR HGB CONC 33.8 g/dl (32.0-37.0); MEAN CORPUSCULAR VOLUME 86.4 fl (82.0-101.0); MONOCYTE # 0.5 10^3/ul (0.3-0.9); MONOCYTES % 6.7 % (0.0-11.0); NEUTROPHIL # 5.3 10^3/ul (1.6-7.5); NEUTROPHILS % 76.4 % (39.0-77.0); PLATELET COUNT 209 10^3/UL (140-440); RED BLOOD COUNT 5.24 10^6/ul (4.20-5.40); RED CELL DISTRIBUTION WIDTH 13.9 % (11.5-14.5)
[2016-09-18 08:11] LABS: BILIRUBIN,INDIRECT 0.4 mg/dl (0-1.1); BILIRUBIN,TOTAL 0.4 mg/dl (0.2-1.3); CREATININE 0.73 mg/dl (0.44-1.00)
[2016-09-18 08:12] LABS: ALBUMIN/GLOBULIN RATIO 1.17; INR 1.01; PROTIME 13.3 Sec (12.2-14.2); TOTAL PROTEIN 7.4 g/dl (6.1-8.1)
[2016-09-18 08:13] LABS: CALCIUM 9.4 mg/dl (8.4-10.2); PARTIAL THROMBOPLASTIN TIME 28.8 Sec (25.0-35.0)
[2016-09-18 08:20] LABS: CONDITION 1
[2016-09-18] MEDS: D5W-0.45 NACL + KCL 20 MEQ 1,000 ML IV SCH ×2 (15:50→19:04)
--- NOTE | 2016-09-18 16:17 | PN ---
Date/Time of Note Date/Time of Note DATE: 09/18/16 TIME: 16:16 Assessment/Plan VTE Prophylaxis VTE Prophylaxis Intervention: other Lines/Catheters IV Catheter Type (from Nrs): Peripheral IV Urinary Cath still in place: No Assessment/Plan Chief Complaint/Hosp Course Assessment/Plan Assessment/Plan 1. Small-bowel obstruction. recurrent due to Mesenteric artery syndrome better 2. Intractable abdominal pain secondary to small-bowel obstruction. 3. History of chronic obstructive pulmonary disease. 4. History of chronic back pain. 5. h/o recent abdominal surgery at [place] few months ago plan per surgery Problems: Subjective 24 Hr Interval Summary Gastrointestinal: pain (+) Exam/Review of Systems Vital Signs Vitals Vital Signs Date Time Temp Pulse Resp B/P Pulse Ox O2 Delivery O2 Flow Rate FiO2 09/18/16 08:10 97.9 86 20 129/80 96 09/16/16 20:00 Room Air 09/16/16 05:42 21 Intake and Output 09/17/16 09/17/16 09/18/16 15:00 23:00 07:00 Intake Total 775 ml 900 ml Output Total 100 ml 300 ml Balance 675 ml 600 ml Exam Neck: supple Respiratory: clear to auscultation Cardiovascular: regular rate and rhythm Genitourinary - Female: nl adnexae Musculoskeletal: nl extremities to inspection Results Result Diagram: 09/18/1638 09/18/16 0738 Results 24 hrs Laboratory Tests Test 09/18/16 07:38 Activated Partial Thromboplast Time 28.8 Alanine Aminotransferase (ALT/SGPT) 36 Albumin 4.0 Albumin/Globulin Ratio 1.17 Alkaline Phosphatase 127 H Anion Gap 18 H Aspartate Amino Transf (AST/SGOT) 24 Basophils # 0.0 Basophils % 0.1 Blood Urea Nitrogen 8 Calcium Level 9.4 Carbon Dioxide Level 27 Chloride Level 101 Creatinine 0.73 Direct Bilirubin 0.00 Eosinophils # 0.1 Eosinophils % 1.3 Globulin 3.40 H Glucose Level 115 Hematocrit 45.3 Hemoglobin 15.3 INR International Normalized Ratio 1.01 Indirect Bilirubin 0.4 Lymphocytes # 1.1 Lymphocytes % 15.5 Mean Corpuscular Hemoglobin 29.2 Mean Corpuscular Hemoglobin Concent 33.8 Mean Corpuscular Volume 86.4 Mean Platelet Volume 9.0 Monocytes # 0.5 Monocytes % 6.7 Neutrophils # 5.3 Neutrophils % 76.4 Nucleated Red Blood Cells # 0.0 Nucleated Red Blood Cells % 0.0 Platelet Count 209 Potassium Level 4.6 Prothrombin Time 13.3 Prothrombin Time Ratio 1.0 Red Blood Count 5.24 Red Cell Distribution Width 13.9 Sodium Level 141 Total Bilirubin 0.4 Total Protein 7.4 White Blood Count 7.0 Medications Medications Current Medications Potassium Chloride/Dextrose/ Sod Cl (D5-1/2ns + KCl 20 Meq) 1,000 ml @ 75 mls/ hr [id number] IV Last administered on 09/18/16 15:50; Admin Dose 75 MLS/HR; Start 09/15/16 at 20:18 Ondansetron HCl (Zofran Inj) 4 mg Q4H PRN IV NAUSEA AND/OR VOMITING Last administered on 09/17/16 08:29; Admin Dose 4 MG; Start 09/15/16 at 20:30 Pantoprazole (Protonix Iv) 40 mg DAILY@06 IV Last administered on 09/18/16 04: 38; Admin Dose 40 MG; Start 09/16/16 at 06:00 Lorazepam (Ativan) 1 mg Q4H PRN IV ANXIETY Last administered on 09/18/16 12:20 ; Admin Dose 1 MG; Start 09/16/16 at 03:30 Hydromorphone HCl (Dilaudid) 2 mg Q3H PRN IV PAIN Last administered on 15:50; Admin Dose 2 MG; Start 09/16/16 at 04:30 MERNA VÁZQUEZ MD Sep 18, 2016 16:17
--- NOTE | 2016-09-18 17:52 | CONS ---
Date/Time of Note Date/Time of Note DATE: 09/18/16 TIME: 17:51 Assessment/Plan Assessment/Plan Additional Assessment/Plan Impression: 1. Small-bowel obstruction. ddx includes adhesions, superior mesenteric artery syndrome, narcotic use leading to functional ileus 2. Intractable abdominal pain secondary to s#1 3. History of chronic obstructive pulmonary disease. 4. History of chronic back pain. 5. h/o recent abdominal surgery at [place] few months ago Recommendation: 1. pain control 2. ok from GI perspective to try clear liquid diet if ok with primary and surgery 3. EGD offered to patient but patient declined stating that she is afraid of procedures despite that I counseled her that it is a safe procedure to evaluate her obstructive symptoms. 4. consider CT angiogram to better evaluate SMA syndrome Consultation Date/Type/Reason Admit Date/Time Sep 15, 2016 at 20:22 Initial Consult Date Type of Consultation: Gi 24 HR Interval Summary Free Text/Dictation hungry Exam/Review of Systems Vital Signs Vitals Vital Signs Date Time Temp Pulse Resp B/P Pulse Ox O2 Delivery O2 Flow Rate FiO2 09/18/16 08:10 97.9 86 20 129/80 96 09/16/16 20:00 Room Air 09/16/16 05:42 21 Intake and Output 09/17/16 09/17/16 09/18/16 15:00 23:00 07:00 Intake Total 775 ml 900 ml Output Total 100 ml 300 ml Balance 675 ml 600 ml Exam Constitutional: alert, oriented, well developed Psych: nl mood/affect, no complaints Head: atraumatic, normocephalic Eyes: EOMI, PERRL, nl conjunctiva, nl lids, nl sclera ENMT: nl external ears & nose, nl lips & teeth, nl nasal mucosa & septum Neck: non-tender, supple Respiratory: clear to auscultation, normal air movement Cardiovascular: nl pulses, regular rate and rhythm Gastrointestinal: nl liver, spleen, non-tender, soft Musculoskeletal: nl extremities to inspection, nl gait and stance Extremities: normal pulses Neurological: STAGE BUILDER II-XII intact, nl mental status, nl speech, nl strength Skin: nl turgor, No rash or lesions Lymph: nl lymph nodes Results Result Diagram: 09/18/16 0738 09/18/16 0738 Results 24 hrs Laboratory Tests Test 09/18/16 07:38 Activated Partial Thromboplast Time 28.8 Alanine Aminotransferase (ALT/SGPT) 36 Albumin 4.0 Albumin/Globulin Ratio 1.17 Alkaline Phosphatase 127 H Anion Gap 18 H Aspartate Amino Transf (AST/SGOT) 24 Basophils # 0.0 Basophils % 0.1 Blood Urea Nitrogen 8 Calcium Level 9.4 Carbon Dioxide Level 27 Chloride Level 101 Creatinine 0.73 Direct Bilirubin 0.00 Eosinophils # 0.1 Eosinophils % 1.3 Globulin 3.40 H Glucose Level 115 Hematocrit 45.3 Hemoglobin 15.3 INR International Normalized Ratio 1.01 Indirect Bilirubin 0.4 Lymphocytes # 1.1 Lymphocytes % 15.5 Mean Corpuscular Hemoglobin 29.2 Mean Corpuscular Hemoglobin Concent 33.8 Mean Corpuscular Volume 86.4 Mean Platelet Volume 9.0 Monocytes # 0.5 Monocytes % 6.7 Neutrophils # 5.3 Neutrophils % 76.4 Nucleated Red Blood Cells # 0.0 Nucleated Red Blood Cells % 0.0 Platelet Count 209 Potassium Level 4.6 Prothrombin Time 13.3 Prothrombin Time Ratio 1.0 Red Blood Count 5.24 Red Cell Distribution Width 13.9 Sodium Level 141 Total Bilirubin 0.4 Total Protein 7.4 White Blood Count 7.0 Medications Medications Current Medications Potassium Chloride/Dextrose/ Sod Cl (D5-1/2ns + KCl 20 Meq) 1,000 ml @ 75 mls/ hr [id number] IV Last administered on 09/18/16 15:50; Admin Dose 75 MLS/HR; Start 09/15/16 at 20:18 Ondansetron HCl (Zofran Inj) 4 mg Q4H PRN IV NAUSEA AND/OR VOMITING Last administered on 09/17/16 08:29; Admin Dose 4 MG; Start 09/15/16 at 20:30 Pantoprazole (Protonix Iv) 40 mg DAILY@06 IV Last administered on 09/18/16 04: 38; Admin Dose 40 MG; Start 09/16/16 at 06:00 Lorazepam (Ativan) 1 mg Q4H PRN IV ANXIETY Last administered on 09/18/16 12:20 ; Admin Dose 1 MG; Start 09/16/16 at 03:30 Hydromorphone HCl (Dilaudid) 2 mg Q3H PRN IV PAIN Last administered on 15:50; Admin Dose 2 MG; Start 09/16/16 at 04:30 JAMIE TARIQ MD Sep 18, 2016 17:52
[2016-09-18] MEDS ORDERED: ACETAMINOPHEN 325 MG TAB PO PRN (19:00)
[2016-09-18 19:55] VITALS: BP 145/77; RESP 18
--- NOTE | 2016-09-18 20:47 | PN ---
Date/Time of Note Date/Time of Note DATE: 09/18/16 TIME: 20:47 Assessment/Plan Lines/Catheters IV Catheter Type (from Nrs): Peripheral IV Barcenas in Place (from Nrs): No Assessment/Plan Chief Complaint/Hosp Course 1. Abdominal pain, N/V, ? ileus vs obstruction (SMA syndrome). SBFT negative. Refused EGD. -liquid diet -dc planning 2. COPD/Emphysema hx -medical management 3. Diverticulosis -diet/lifestyle optimization 4. Renal stones -judicious fluid management 5. Addicted pain medications/Tramadol -medical management 6. Anxiety/?Psychiatric disorder -medical/psych management Thank you, Problems: Subjective 24 Hr Interval Summary Wants dilaudid. No n/v. Pain, generalized. No f/c. No cp/sob. No cough. No kumar/dizzy/visual or neuro changes. No dysuria. SBFT negative. Refused EGD. Exam/Review of Systems Vital Signs Vitals Vital Signs Date Time Temp Pulse Resp B/P Pulse Ox O2 Delivery O2 Flow Rate FiO2 09/18/16 19:55 98.2 85 18 145/77 96 09/16/16 20:00 Room Air 09/16/16 05:42 21 Intake and Output 09/17/16 09/17/16 09/18/16 14:59 22:59 06:59 Intake Total 775 ml 900 ml Output Total 100 ml 300 ml Balance 675 ml 600 ml Exam Free Text/Dictation Constitutional: alert, oriented, No distress Psych: nl mood/affect, No anxiety, No confusion Head: atraumatic, normocephalic Eyes: EOMI, PERRL, nl conjunctiva, No icteric ENMT: nl external ears & nose, nl lips & teeth, No mucosa pink and moist Neck: non-tender, supple, No jvd Respiratory: normal air movement, No congested cough, No diminished breath sounds, No labored breathing Cardiovascular: nl pulses, regular rate and rhythm, No edema Gastrointestinal: non-tender, soft, No distended, No rebound or guarding Musculoskeletal: nl extremities to inspection, No joint tenderness Extremities: normal pulses, No calf tenderness, No edema Neurological: nl speech, nl strength Skin: nl turgor, No diaphoresis, No rash or lesions Lymph: nl lymph nodes Results Result Diagram: 09/18/16 0738 09/18/16 0738 NADINE LOVELL MD Sep 18, 2016 20:47
[2016-09-18] MEDS: LUBIPROSTONE 24 MCG CAP PO SCH (20:54)
[2016-09-19] MEDS: traMADol 50 MG TAB PO PRN ×3 (00:18→14:09)
[2016-09-19] MEDS ORDERED: PANTOPRAZOLE (EC) 40 MG TAB PO SCH (06:00)
[2016-09-19] MEDS: D5W-0.45 NACL + KCL 20 MEQ 1,000 ML IV SCH (08:02)
[2016-09-19] MEDS: LUBIPROSTONE 24 MCG CAP PO SCH (08:03)
[2016-09-19 08:15] VITALS: BP 109/71; RESP 18
[2016-09-19] MEDS ORDERED: PANT40TA4 PO (13:26)
--- NOTE | 2016-09-19 16:36 | QN ---
Documentation Comment [id number] MERNA VÁZQUEZ MD Sep 19, 2016 16:36
--- NOTE | 2016-09-19 19:55 | PN ---
Date/Time of Note Date/Time of Note DATE: 09/19/16 TIME: 19:54 Assessment/Plan Lines/Catheters IV Catheter Type (from [facility]): Peripheral IV Barcenas in Place (from [facility]): No Assessment/Plan Chief Complaint/Hosp Course 1. Abdominal pain, N/V, ? ileus vs obstruction (SMA syndrome). SBFT negative. Refused EGD. Bowel function. -liquid diet 2. COPD/Emphysema hx -medical management 3. Diverticulosis -diet/lifestyle optimization 4. Renal stones -judicious fluid management 5. Addicted pain medications/Tramadol -medical management 6. Anxiety/?Psychiatric disorder -medical/psych management Thank you, Late entry Problems: Subjective 24 Hr Interval Summary Wants dilaudid. No n/v. Pain, generalized. No f/c. No cp/sob. No cough. No kumar/dizzy/visual or neuro changes. No dysuria. SBFT negative. Refused EGD. Bowel function Exam/Review of Systems Vital Signs Vitals Vital Signs Date Time Temp Pulse Resp B/P Pulse Ox O2 Delivery O2 Flow Rate FiO2 09/19/16 08:15 98.4 91 18 109/71 98 09/16/16 20:00 Room Air 09/16/16 05:42 21 Intake and Output 09/18/16 09/18/16 09/19/16 15:00 23:00 07:00 Intake Total 1400 ml 1380 ml Output Total 800 ml Balance 600 ml 1380 ml Exam Free Text/Dictation Constitutional: alert, oriented, No distress Psych: nl mood/affect, No anxiety, No confusion Head: atraumatic, normocephalic Eyes: EOMI, PERRL, nl conjunctiva, No icteric ENMT: nl external ears & nose, nl lips & teeth, No mucosa pink and moist Neck: non-tender, supple, No jvd Respiratory: normal air movement, No congested cough, No diminished breath sounds, No labored breathing Cardiovascular: nl pulses, regular rate and rhythm, No edema Gastrointestinal: non-tender, soft, No distended, No rebound or guarding Musculoskeletal: nl extremities to inspection, No joint tenderness Extremities: normal pulses, No calf tenderness, No edema Neurological: nl speech, nl strength Skin: nl turgor, No diaphoresis, No rash or lesions Lymph: nl lymph nodes Results Result Diagram: 09/18/16 0738 09/18/16 0738 NADINE LOVELL MD Sep 19, 2016 19:55
--- NOTE | 2016-09-19 21:34 | DS ---
DATE OF ADMISSION: 09/15/2016 DATE OF DISCHARGE: 09/19/2016 HOSPITAL COURSE: The patient was admitted with abdominal pain. Was seen by Dr. Hanson in consulta tion. The patient had abdominal CT pelvis shows patient has possible mild degree of intermittent __ __ obstruction of the third portion of the duodenum ____ venous structure and the abdominal aorta wi th abrupt change in caliber ____ the second and third portion of the duodenum, moderate stool burden in the colon, nonobstructing renal stone. The patient received bowel care. Now the patient has di arrhea. Also had a small bowel series, which was negative. The patient is tolerating diet p.o. No small-bowel obstruction, moderate volume of retained stool throughout the colon, bilateral renal ca lculi. The patient was requesting narcotic, which were stopped. The patient was taking Tylenol and Toradol as needed. The patient is stable to be discharged. DISCHARGE DIAGNOSES: 1. Small-bowel obstruction, resolved. 2. Constipation. 3. History of anxiety. 4. Depression. DISCHARGE MEDICATIONS: Given. Continue on: 1. MiraLax. 2. Protonix. 3. Tramadol. FOLLOWUP: With PCP. DIET: As tolerated. Dictated By: MERNA VÁZQUEZ MD BS/NTS Conf#: [id number] DID#: [id number] CC: YAO MICHAEL MD;*End*
== END 2016-09-19 14:50 | disposition home or self-care (01) | DRG 389 ==
LOC: E/R 11:48 → MS1 20:22
PROVIDERS: ADMIT Internal Medicine Nephrology; ATTEND Internal Medicine Nephrology
DX: K56.60 Unspecified intestinal obstruction (principal); K31.5 Obstruction of duodenum; Z68.1 Body mass index [BMI] 19.9 or less, adult; N20.0 Calculus of kidney; K57.90 Diverticulosis of intestine, part unspecified, without perforation or abscess without bleeding; K59.00 Constipation, unspecified; J44.9 Chronic obstructive pulmonary disease, unspecified; R63.4 Abnormal weight loss; F41.9 Anxiety disorder, unspecified; F32.9 Major depressive disorder, single episode, unspecified
CPT/HCPCS: 36415; 71010; 74177; 74250; 80053; 81001; 81003; 83690; 85025; 85610; 85730; 96374; 96375; 96376; C9113; J1170; J2060; J2270; J2405; J3480; J7030; Q9967

== ENCOUNTER 2016-10-23 07:56 | Emergency (ER) | payer OTHER ==
[~2016-10-23] VITALS: Wt 55.0 kg
[~2016-10-23 07:56] MED LIST: PANT40TA4 PO; TRAM-40 PO
[2016-10-23] MEDS ORDERED: ONDANSETRON (ODT) 4 MG TAB ODT STA (08:11)
[2016-10-23] MEDS ORDERED: ONDA4TAB14 PO (08:12)
[2016-10-23] MEDS ORDERED: traMADol 50 MG TAB PO ONE (08:30)
[2016-10-23 08:50] VITALS: BP 126/75; PULSE 72; RESP 19; TEMP 98.2
--- NOTE | 2016-10-23 09:03 | ERD ---
ER Documentation Chief Complaint Date/Time DATE: 10/23/16 TIME: 09:02 Chief Complaint abd pain and vomiting for the past few days. no distress HPI Patient is a 61-year-old female with a history of chronic pain who presents with abdominal pain and back pain. She has had vomiting as well for the past 2 days. She said that the pain comes and goes. She took tramadol last night. Upon review of old medical records she has had multiple visits to the ER for pain complaints. Review of the emergency department information exchange system shows visits to 4 different emergency departments as well. She does not have a pain management doctor currently. She does not know the name of her primary doctor. ROS All systems reviewed and are negative except as per history of present illness. Medications Home Meds Active Scripts Ondansetron (Ondansetron Odt) 4 Mg Tab.rapdis, 4 MG PO Q6H Y for NAUSEA AND/OR VOMITING, #30 TAB Prov:JESSICA KHAN MD 10/23/16 Pantoprazole* (Pantoprazole*) 40 Mg Tablet.dr, 40 MG PO DAILY@06 for 14 Days Prov:MERNA VÁZQUEZ MD 09/19/16 Reported Medications Tramadol Hcl* (Ultram*) 50 Mg Tablet, 50 MG PO Q6H Y for PAIN, TAB 09/15/16 Allergies Allergies: Coded Allergies: acetaminophen (Verified Allergy, Mild, itchy, 09/15/16) hydrocodone bit (Verified Allergy, Mild, itchy, 09/15/16) hydrocodone (Unverified Allergy, Unknown, 09/15/16) ketorolac (Unverified Allergy, Unknown, 09/15/16) PMhx/Soc Medical and Surgical Hx: pt denies Surgical Hx History of Surgery: No Anesthesia Reaction: No Hx Neurological Disorder: No Hx Respiratory Disorders: No (COPD) Hx Cardiac Disorders: No Hx Psychiatric Problems: No Hx Miscellaneous Medical Probl: No Hx Alcohol Use: No Hx Substance Use: No Hx Tobacco Use: Yes Smoking Status: Current every day smoker FmHx Family History: No diabetes Physical Exam Vitals Vital Signs Date Time Temp Pulse Resp B/P Pulse Ox O2 Delivery O2 Flow Rate FiO2 10/23/16 07:58 97.8 102 22 180/81 98 Physical Exam Const: Mild distress secondary to pain Head: Atraumatic Eyes: Normal Conjunctiva ENT: Normal External Ears, Nose and Mouth. Neck: Full range of motion..~ No meningismus. Resp: Clear to auscultation bilaterally Cardio: Regular rate and rhythm, no murmurs Abd: Soft, non tender, non distended. Normal bowel sounds Skin: No petechiae or rashes Back: No midline or flank tenderness Ext: No cyanosis, or edema Neur: Awake and alert Psych: Normal Mood and Affect Results 24 hrs Current Medications Medications (Trade) Dose Ordered Sig/Roxy Route PRN Reason Start Time Stop Time Status Last Admin Dose Admin Tramadol HCl (Ultram) 50 mg ONCE ONCE PO 10/23/16 08:30 10/23/16 08:31 DC 10/23/16 08:18 Ondansetron HCl (Zofran Odt) 4 mg ONCE STAT ODT 10/23/16 08:11 10/23/16 08:12 DC 10/23/16 08:17 Procedures/MDM Patient is a 61-year-old female presents with acute on chronic pain. At this point I doubt bowel obstruction she has a normal abdominal exam and no distention. I believe outpatient management is appropriate. She was given tramadol and Zofran. I will give her a prescription for Zofran. I will give her information for Dr. Alanis from pain management as I believe this would be beneficial to her. I do believe there is an element of pain seeking behavior. She can return for any worsening symptoms. I doubt appendicitis, cholecystitis , pancreatitis, or bowel obstruction. Departure Diagnosis: Primary Impression: Vomiting Vomiting type: unspecified Vomiting Intractability: non-intractable Nausea presence: with nausea Qualified Code: R11.2 - Non-intractable vomiting with nausea, unspecified vomiting type Additional Impression: Abdominal pain Abdominal location: generalized Qualified Code: R10.84 - Generalized abdominal pain Condition: Fair Patient Instructions: Abdominal Pain, Vomiting (6Y-Adult) Referrals: ELMIRA ALANIS Additional Instructions: SPECIALIST: YOU HAVE A MEDICAL CONDITION WHICH REQUIRES YOU TO SEE A SPECIALIST WITHIN THE NEXT 1-2 DAYS. PLEASE FOLLOW UP WITH YOUR PRIMARY PHYSICIAN FOR REFFERAL.IF YOU DO NOT HAVE A PRIMARY CARE PHYSICIAN AND/OR YOU CAN NOT AFFORD TO SEE A PHYSICIAN THE FOLLOWING RESOURCES HAVE BEEN SUPPLIED TO YOU. IT IS YOUR RESPONSIBILITY TO BE SEEN BY THE SPECIALIST JESSICA KHAN MD Oct 23, 2016 09:03
== END 2016-10-23 08:50 | disposition home or self-care (01) ==
LOC: E/R 07:56
DX: R11.2 Nausea with vomiting, unspecified (principal); R40.2342 Coma scale, best motor response, flexion withdrawal, at arrival to emergency department; R10.84 Generalized abdominal pain; J44.9 Chronic obstructive pulmonary disease, unspecified; F17.210 Nicotine dependence, cigarettes, uncomplicated; R40.2142 Coma scale, eyes open, spontaneous, at arrival to emergency department; R40.2362 Coma scale, best motor response, obeys commands, at arrival to emergency department
CPT/HCPCS: Z7502; Z7610; 99283

== ENCOUNTER 2016-11-29 08:59 | Emergency (ER) | payer OTHER ==
[~2016-11-29] VITALS: Ht 152.4 cm; Wt 56.2 kg
[~2016-11-29 08:59] MED LIST changes: +ONDA4TAB14 PO
[2016-11-29 09:01] VITALS: Ht 152.4 cm; Wt 56.2 kg
[2016-11-29] MEDS ORDERED: morphine 4 MG/ML VIAL IV STA (09:31)
[2016-11-29] MEDS ORDERED: ONDANSETRON 4 MG INJ IV STA (09:31)
--- NOTE | 2016-11-29 09:50 | ERD ---
ER Documentation Chief Complaint Date/Time DATE: 11/29/16 TIME: 09:46 Chief Complaint flu x 2 days HPI 61-year-old female complaining of abdominal pain and vomiting 2 days. States that she had 3 episode of vomiting today. The vomitus is green in color. Patient has history of small bowel obstruction status post abdominal surgery. Her last bowel movement was 4 days ago. Patient also complaining of cough 2 days with shortness of breath. Denies fever or chills. Denies diarrhea. Denies dysuria. ROS All systems reviewed and are negative except as per history of present illness. Medications Home Meds Active Scripts Polyethylene Glycol* (Miralax*) 17 Gm Powd.pack, 1 PACKET PO DAILY, #20 Prov:KALEB COWAN HEAD NURSE 11/29/16 Ondansetron Hcl* (Zofran*) 4 Mg Tablet, 4 MG PO Q8H Y for NAUSEA AND/OR VOMITING , #10 TAB Prov:KALEB COWAN NP 11/29/16 Ondansetron (Ondansetron Odt) 4 Mg Tab.rapdis, 4 MG PO Q6H Y for NAUSEA AND/OR VOMITING, #30 TAB Prov:JESSICA KHAN MD 10/23/16 Pantoprazole* (Pantoprazole*) 40 Mg Tablet.dr, 40 MG PO DAILY@06 for 14 Days Prov:MERNA VÁZQUEZ MD 09/19/16 Reported Medications Tramadol Hcl* (Ultram*) 50 Mg Tablet, 50 MG PO Q6H Y for PAIN, TAB 09/15/16 Allergies Allergies: Coded Allergies: tramadol (Verified Allergy, Intermediate, 11/29/16) acetaminophen (Verified Allergy, Mild, itchy, 09/15/16) hydrocodone bit (Verified Allergy, Mild, itchy, 09/15/16) hydrocodone (Unverified Allergy, Unknown, 09/15/16) ketorolac (Unverified Allergy, Unknown, 09/15/16) PMhx/Soc History of Surgery: No Anesthesia Reaction: No Hx Neurological Disorder: No Hx Respiratory Disorders: No (COPD) Hx Cardiac Disorders: No Hx Psychiatric Problems: No Hx Miscellaneous Medical Probl: Yes (small bowel obstruction.) Hx Alcohol Use: No Hx Substance Use: No Hx Tobacco Use: Yes Smoking Status: Current every day smoker Physical Exam Vitals Vital Signs Date Time Temp Pulse Resp B/P Pulse Ox O2 Delivery O2 Flow Rate FiO2 11/29/16 09:01 98.1 99 20 136/83 98 Physical Exam General impression: Well-developed, well-nourished. Alert, oriented, in no acute distress Head: Normocephalic, atraumatic. Eyes: PERRL, EOM normal. Conjunctiva not injected. ENT: Nasal mucosa erythematous and swollen. Oral mucosa and oropharynx are normal. Neck: Supple, nontender. No lymphadenopathy. No nuchal rigidity. Respiration: Normal respiratory effort. Lungs clear to auscultate bilaterally. No wheezes, rales or rhonchi. Cardiovascular: Regular rate and rhythm. No murmurs or extra heart sounds. Abdomen: Abdomen normal to inspection. Diffuse abdominal tenderness, without rebound or guarding. No masses or organomegaly. Bowel sounds normal. Neuro: Mental status normal, speech normal. [employer] grossly intact. Skin: Normal turgor. No rash or lesions. Psych: Normal mood and affect. Result Diagram: 11/29/16 0945 11/29/16 0945 Results 24 hrs Laboratory Tests Test 11/29/16 09:45 White Blood Count 4.810^3/ul Red Blood Count 4.8810^6/ul Hemoglobin 15.0g/dl Hematocrit 44.8% Mean Corpuscular Volume 91.8fl Mean Corpuscular Hemoglobin 30.7pg Mean Corpuscular Hemoglobin Concent 33.5g/dl Red Cell Distribution Width 14.0% Platelet Count 34926^3/UL Mean Platelet Volume 10.6fl Neutrophils % 65.6% Lymphocytes % 18.9% Monocytes % 9.2% Eosinophils % 5.3% Basophils % 0.8% Nucleated Red Blood Cells % 0.0/100WBC Neutrophils # 3.110^3/ul Lymphocytes # 0.910^3/ul Monocytes # 0.410^3/ul Eosinophils # 0.310^3/ul Basophils # 0.010^3/ul Nucleated Red Blood Cells # 0.010^3/ul Urine Color LT. YELLOW Urine Clarity CLEAR Urine pH 6.0 Urine Specific [place] 1.015 Urine Ketones NEGATIVE Urine Nitrite NEGATIVE Urine Bilirubin NEGATIVE Urine Urobilinogen 0.2 E.U./dL Urine Leukocyte Esterase NEGATIVE Urine Microscopic RBC 2-5/HPF Urine Microscopic WBC 0-2/HPF Urine Epithelial Cells OCCASIONAL Urine Hemoglobin 2+ Urine Glucose NEGATIVE% Urine Total Protein NEGATIVE Sodium Level 144mmol/L Potassium Level 4.6mmol/L Chloride Level 102mmol/L Carbon Dioxide Level 30mmol/L Anion Gap 17 Blood Urea Nitrogen 15mg/dl Creatinine 0.87mg/dl Glucose Level 59mg/dl Calcium Level 9.6mg/dl Total Bilirubin 0.4mg/dl Direct Bilirubin 0.00mg/dl Indirect Bilirubin 0.4mg/dl Aspartate Amino Transf (AST/SGOT) 34IU/L Alanine Aminotransferase (ALT/SGPT) 43IU/L Alkaline Phosphatase 137IU/L Total Protein 7.8g/dl Albumin 4.3g/dl Globulin 3.50g/dl Albumin/Globulin Ratio 1.22 Lipase 33U/L Current Medications Medications (Trade) Dose Ordered Sig/Roxy Route PRN Reason Start Time Stop Time Status Last Admin Dose Admin Ondansetron HCl (Zofran Inj) 4 mg ONCE STAT IV 11/29/16 09:31 11/29/16 09:32 DC 11/29/16 09:48 Morphine Sulfate (morphine) 4 mg ONCE STAT IV 11/29/16 09:31 11/29/16 09:33 DC 11/29/16 09:49 IV Flush 10 ml 10 ml STK-MED ONCE .ROUTE 11/29/16 10:52 11/29/16 10:53 DC 11/29/16 11:29 Sodium Chloride (NS) 0 ml @ ud STK-MED ONCE .ROUTE 11/29/16 10:52 11/29/16 10:53 DC Iohexol (Omnipaque 300mg/ ml) 30 ml STK-MED ONCE .ROUTE 11/29/16 10:52 11/29/16 10:53 DC 11/29/16 11:24 IV Flush 10 ml 10 ml STK-MED ONCE .ROUTE 11/29/16 10:53 11/29/16 10:54 DC 11/29/16 11:24 Sodium Chloride (NS) 100 ml @ ud STK-MED ONCE .ROUTE 11/29/16 10:53 11/29/16 10:54 DC 11/29/16 11:30 Iohexol (Omnipaque 300mg/ ml) 150 ml STK-MED ONCE .ROUTE 11/29/16 10:53 11/29/16 10:54 DC Iohexol (Omnipaque 300mg/ ml) 150 ml STK-MED ONCE .ROUTE 11/29/16 10:54 11/29/16 10:55 DC 11/29/16 11:25 Iohexol (Omnipaque 300mg/ ml) 150 ml STK-MED ONCE .ROUTE 11/29/16 10:54 11/29/16 10:55 DC PROCEDURE: CT abdomen and pelvis with contrast. CLINICAL INDICATION: Abdominal pain. Nausea and vomiting. History of small bowel obstruction TECHNIQUE: CT scan of the abdomen and pelvis with contrast was performed on a multi-slice CT scanner. The patient was scanned following the uncomplicated intravenous administration 100 cc of Omnipaque 300. Coronal and sagittal reformatted images were obtained from the axial source images. One or more of the following does reduction techniques were used: Automated exposure control; adjustment of the mA and/or kV according to patient size; use of the aorta of reconstruction technique. Images were reviewed on a high-resolution PACS workstation. The total exam CTDI equals 5.84 mGy and the total exam DLP equals 192.32 mGy-cm. COMPARISON: CT abdomen pelvis 09/15/2016 FINDINGS: There is mild scarring or atelectasis in the right posterior lung base. No basilar infiltrate or pleural effusion is seen. The heart size is normal, without pericardial thickening or effusion. There is subtle intra and extrahepatic ductal dilatation as well as mild pancreatic ductal dilatation which is stable compared to prior study. The liver , spleen, and pancreas are otherwise normal. The gallbladder is normal. The adrenal glands are symmetric and normal. The kidneys show normal and symmetric enhancement. There are multiple bilateral nonobstructing renal calculi, stable in distribution and extent when compared to prior study. A few peripelvic cysts are also unchanged.. The aorta is of normal caliber. Atherosclerotic calcifications are present. Incidental note is made of a retroaortic left renal vein. There is no retroperitoneal lymph node enlargment. There is no evidence of large or small bowel obstruction. There are scattered colonic diverticula. There is no CT evidence of diverticulitis. There is moderate retained colonic stool, similar compared to prior study. A normal appendix is identified. No free fluid or fluid collections are identified. No inflammatory changes are seen. The uterus is present. There is no evidence of pelvic sidewall lymph node enlargement. The bladder is within normal limits. There is no pelvic free fluid. The inguinal regions are unremarkable.. The osseous structures are intact. IMPRESSION: 1. No CT evidence of acute intra-abdominal or pelvic process. No evidence of large or small bowel obstruction. 2. Mild intra and extrahepatic ductal dilatation as well as pancreatic ductal dilatation, stable compared to prior study, likely within normal limits for this patient. Recommend correlation with serum bilirubin. 3. Stable bilateral nonobstructing renal calculi. 4. Atherosclerotic vascular disease. 5. Diverticulosis without evidence of diverticulitis. 6. Moderate retained colonic stool, correlate with constipation. RPTAT: KK .Lavell Benavides MD, Date Time Electronically viewed and signed by .Lavell Benavides MD, MD on 2016 11:39 .B/ CC: KALEB COWAN HEAD NURSE Procedures/MDM 61-year-old female with history of bowel obstruction presented ED today with diffuse abdominal pain, vomiting, and no BM 4 days. Zofran and morphine IV given to the patient. Patient appears to be comfortable without any further vomiting after medication. CBC, CMP, lipase, UA, CT abdomen and pelvis without IV contrast was obtained to rule out bowel obstruction. CT results noted above , negative for obstruction. Constipation is noted on CT. CBC is unremarkable. CMP is also unremarkable except for blood glucose of 59. Lipase is negative. UA is negative for UTI. Patient is given juice and sandwiches. Again no additional vomiting is noted. I think the likely cause of her vomiting and abdominal pain is due to a viral illness. I doubt acute appendicitis, cholecystitis, hepatitis or other acute abdomen. Patient also has viral URI symptoms. Patient is afebrile, in no respiratory distress. Lungs are clear to auscultate. I doubt that patient has pneumonia or bronchitis. Patient appears well, stable for discharge and outpatient management. Medical decision making shared with patient and family. Education provided to patient and family. Patient and family expressed understanding of the plan. Medications on discharge: Zofran, MiraLAX. Follow-up: Primary care provider in 2-3 days or return to ED if worse. The case was reviewed and discussed with Dr. Johnson, who agrees with the plan of care including labs, treatment, and advanced imaging as appropriate. Departure Diagnosis: Primary Impression: Vomiting Vomiting type: unspecified Vomiting Intractability: non-intractable Nausea presence: unspecified Qualified Code: R11.10 - Non-intractable vomiting, presence of nausea not specified, unspecified vomiting type Additional Impressions: Upper respiratory infection Constipation Constipation type: unspecified constipation type Qualified Code: K59.00 - Constipation, unspecified constipation type Condition: Stable KALEB COWAN NP Nov 29, 2016 09:50
[2016-11-29 09:51] LABS: ADD SCAN DIFF NO
[2016-11-29 09:54] LABS: BASOPHILS % 0.8 % (0.0-2.0); EOSINOPHILS # 0.3 10^3/ul (0.0-0.5); EOSINOPHILS % 5.3 % (0.0-7.0); HEMATOCRIT 44.8 % (37.0-47.0); LYMPHOCYTES # 0.9 10^3/ul (0.8-2.9); LYMPHOCYTES % 18.9 % (15.0-51.0); MEAN CORPUSCULAR HEMOGLOBIN 30.7 pg (29.0-33.0); MEAN CORPUSCULAR HGB CONC 33.5 g/dl (32.0-37.0); MEAN CORPUSCULAR VOLUME 91.8 fl (82.0-101.0); MEAN PLATELET VOLUME 10.6 fl (7.4-10.4); MONOCYTE # 0.4 10^3/ul (0.3-0.9); MONOCYTES % 9.2 % (0.0-11.0); NEUTROPHIL # 3.1 10^3/ul (1.6-7.5); NEUTROPHILS % 65.6 % (39.0-77.0); PLATELET COUNT 175 10^3/UL (140-415); RED BLOOD COUNT 4.88 10^6/ul (4.20-5.40); WHITE BLOOD COUNT 4.8 10^3/ul (4.8-10.8)
[2016-11-29 09:56] LABS: ADD UMIC YES; URINE BILIRUBIN (Dip) NEGATIVE (NEGATIVE); URINE BLOOD (Dip) 2+ (NEGATIVE); URINE COLOR LT. YELLOW (YELLOW); URINE GLUCOSE (Dip) NEGATIVE (NEGATIVE); URINE KETONES (Dip) NEGATIVE (NEGATIVE); URINE LEUKOCYTE ESTERASE (Dip) NEGATIVE (NEGATIVE); URINE NITRITE (Dip) NEGATIVE (NEGATIVE); URINE TOTAL PROTEIN (Dip) NEGATIVE (NEGATIVE); URINE UROBILINOGEN (Dip) 0.2 E.U./dL (0.1-1.0)
[2016-11-29 10:03] LABS: ALBUMIN 4.3 g/dl (3.3-4.9)
[2016-11-29 10:04] LABS: POTASSIUM 4.6 mmol/L (3.5-5.1)
[2016-11-29 10:06] LABS: ALBUMIN/GLOBULIN RATIO 1.22; BILIRUBIN,INDIRECT 0.4 mg/dl (0-1.1); BILIRUBIN,TOTAL 0.4 mg/dl (0.2-1.3); CREATININE 0.87 mg/dl (0.44-1.00); TOTAL PROTEIN 7.8 g/dl (6.1-8.1)
[2016-11-29 10:07] LABS: CALCIUM 9.6 mg/dl (8.4-10.2)
[2016-11-29] MEDS ORDERED: SOD CHLORIDE 0.9% 0 ML ONE (10:52)
[2016-11-29] MEDS ORDERED: IOHEXOL 300MG/ML 30 ML BTL ONE (10:52)
[2016-11-29] MEDS ORDERED: IOHEXOL 300MG/ML 150 ML BTL ONE ×3 (10:53→10:54)
[2016-11-29] MEDS ORDERED: SOD CHLORIDE 0.9% 100 ML ONE (10:53)
--- NOTE | 2016-11-29 11:39 | RADRPT ---
PROCEDURE: CT abdomen and pelvis with contrast. CLINICAL INDICATION: Abdominal pain. Nausea and vomiting. History of small bowel obstruction TECHNIQUE: CT scan of the abdomen and pelvis with [facility] The patient was scanned following the uncomplicated intravenous administration 100 cc of Omnipa que 300. Coronal and sagittal reformatted images were obtained from the axial source images. One or more of the following does reduction techniques were used: Automated exposure control; adjustment of the mA and/or kV according to patient size; use of the aorta of reconstruction technique. Images were reviewed on a high-resolution PACS workstation. The total exam CTDI equals 5.84 mGy and the tot al exam DLP equals 192.32 mGy-cm. COMPARISON: CT abdomen pelvis 09/15/2016 FINDINGS: There is mild scarring or atelectasis in the right posterior lung base. No basilar infiltrate or pl eural effusion is seen. The heart size is normal, without pericardial thickening or effusion. There is subtle intra and extrahepatic ductal dilatation as well as mild pancreatic ductal dilatatio n which is stable compared to prior study. The liver, spleen, and pancreas are otherwise normal. T he gallbladder is normal. The adrenal glands are symmetric and normal. The kidneys show normal and symmetric enhancement. Th ere are multiple bilateral nonobstructing renal calculi, stable in distribution and extent when comp ared to prior study. A few peripelvic cysts are also unchanged.. The aorta is of normal caliber. Atherosclerotic calcifications are present. Incidental note is made of a retroaortic left renal vein. There is no retroperitoneal lymph node enlargment. There is no evidence of large or small bowel obstruction. There are scattered colonic diverticula. There is no CT evidence of diverticulitis. There is moderate retained colonic stool, similar compar ed to prior study. A normal appendix is identified. No free fluid or fluid collections are identifi ed. No inflammatory changes are seen. The uterus is present. There is no evidence of pelvic sidewall lymph node enlargement. The bladder is within normal limits. There is no pelvic free fluid. The inguinal regions are unremarkable.. The osseous structures are intact. IMPRESSION: 1. No CT evidence of acute intra-abdominal or pelvic process. No evidence of large or small bowel obstruction. 2. Mild intra and extrahepatic ductal dilatation as well as pancreatic ductal dilatation, stable co mpared to prior study, likely within normal limits for this patient. Recommend correlation with ser um bilirubin. 3. Stable bilateral nonobstructing renal calculi. 4. Atherosclerotic vascular disease. 5. Diverticulosis without evidence of diverticulitis. 6. Moderate retained colonic stool, correlate with constipation. RPTAT: KK .Lavell Benavides MD, Date Time Electronically viewed and signed by .Lavell Benavides MD, on 11/29/2016 11:39 .B/
[2016-11-29] MEDS ORDERED: ONDA4TAB8 PO (12:14)
[2016-11-29] MEDS ORDERED: POLY17PO6 PO (12:14)
[2016-11-29 12:54] VITALS: BP 127/58; PULSE 69; RESP 20; TEMP 97.8
== END 2016-11-29 12:55 | disposition home or self-care (01) ==
LOC: FTE 08:59
DX: R11.10 Vomiting, unspecified (principal); J06.9 Acute upper respiratory infection, unspecified; K59.00 Constipation, unspecified; J44.9 Chronic obstructive pulmonary disease, unspecified; F17.210 Nicotine dependence, cigarettes, uncomplicated
CPT/HCPCS: 36415; 74177; 80053; 81001; 83690; 85025; 96374; 96375; J2270; J2405; Q9967; Z7502; Z7610; 81003

== ENCOUNTER 2017-01-21 12:54 | Emergency (ER) | payer OTHER ==
[~2017-01-21] VITALS: Wt 68.0 kg
[~2017-01-21 12:54] MED LIST changes: +ONDA4TAB8 PO; +POLY17PO6 PO
[2017-01-21] MEDS ORDERED: ONDANSETRON 4 MG INJ IM STA (14:15)
[2017-01-21] MEDS ORDERED: traMADol 50 MG TAB PO ONE (14:30)
[2017-01-21 14:40] LABS: ADD SCAN DIFF NO
[2017-01-21 14:42] LABS: BASOPHILS % 0.7 % (0.0-2.0); EOSINOPHILS # 0.1 10^3/ul (0.0-0.5); EOSINOPHILS % 1.7 % (0.0-7.0); HEMATOCRIT 46.1 % (37.0-47.0); HEMOGLOBIN 15.5 g/dl (12.0-16.0); LYMPHOCYTES # 1.1 10^3/ul (0.8-2.9); LYMPHOCYTES % 17.5 % (15.0-51.0); MEAN CORPUSCULAR HEMOGLOBIN 30.7 pg (29.0-33.0); MEAN CORPUSCULAR HGB CONC 33.6 g/dl (32.0-37.0); MEAN CORPUSCULAR VOLUME 91.3 fl (82.0-101.0); MEAN PLATELET VOLUME 10.5 fl (7.4-10.4); MONOCYTE # 0.4 10^3/ul (0.3-0.9); MONOCYTES % 5.8 % (0.0-11.0); NEUTROPHIL # 4.5 10^3/ul (1.6-7.5); PLATELET COUNT 228 10^3/UL (140-415); RED BLOOD COUNT 5.05 10^6/ul (4.20-5.40); RED CELL DISTRIBUTION WIDTH 13.1 % (11.5-14.5)
[2017-01-21 14:43] LABS: ADD UMIC YES; URINE BILIRUBIN (Dip) NEGATIVE (NEGATIVE); URINE BLOOD (Dip) 3+ (NEGATIVE); URINE COLOR LT. YELLOW (YELLOW); URINE GLUCOSE (Dip) NEGATIVE (NEGATIVE); URINE KETONES (Dip) NEGATIVE (NEGATIVE); URINE LEUKOCYTE ESTERASE (Dip) TRACE (NEGATIVE); URINE NITRITE (Dip) NEGATIVE (NEGATIVE); URINE TOTAL PROTEIN (Dip) NEGATIVE (NEGATIVE); URINE UROBILINOGEN (Dip) 0.2 E.U./dL (0.1-1.0)
[2017-01-21 14:57] LABS: ALBUMIN 4.4 g/dl (3.3-4.9)
[2017-01-21 14:58] LABS: POTASSIUM 4.1 mmol/L (3.5-5.1)
[2017-01-21 14:59] LABS: BILIRUBIN,INDIRECT 0.2 mg/dl (0-1.1); BILIRUBIN,TOTAL 0.2 mg/dl (0.2-1.3); CREATININE 0.9 mg/dl (0.44-1.00)
[2017-01-21 15:00] LABS: ALBUMIN/GLOBULIN RATIO 1.07; CALCIUM 9.8 mg/dl (8.4-10.2); TOTAL PROTEIN 8.5 g/dl (6.1-8.1)
[2017-01-21 15:02] LABS: BACTERIA,URINE FEW
[2017-01-21] MEDS ORDERED: CEPH-443 PO (15:06)
[2017-01-21] MEDS ORDERED: CEPHALEXIN 500 MG CAP PO ONE (15:30)
[2017-01-21 16:01] VITALS: BP 104/75; PULSE 87; RESP 14
--- NOTE | 2017-01-21 21:24 | ERD ---
ER Documentation Chief Complaint Date/Time DATE: 01/21/17 TIME: 21:21 Chief Complaint ABD PAIN X 2 DAYS HPI 61-year-old woman here with complaints of abdominal pain similar multiple previous episodes. She is requesting a prescription of tramadol which she normally gets from the ED. She is well-known to this emergency department and other nearby emergency departments. She has a long history of chronic abdominal pain and chronic pain syndrome as well as opioid and tramadol dependence. She denies blood per rectum, no fevers or chills, no weight loss, no chest pain or shortness of breath. ROS All systems reviewed and are negative except as per history of present illness. Medications Home Meds Active Scripts Cephalexin* (Keflex*) 500 Mg Capsule, 500 MG PO QID for 7 Days, CAP Prov:BRITTNY GUERRIER MD 01/21/17 Reported Medications Tramadol Hcl* (Ultram*) 50 Mg Tablet, 50 MG PO Q6H Y for PAIN, TAB 09/15/16 Discontinued Scripts Polyethylene Glycol* (Miralax*) 17 Gm Powd.pack, 1 PACKET PO DAILY, #20 Prov:KALEB COWAN NP 11/29/16 Ondansetron Hcl* (Zofran*) 4 Mg Tablet, 4 MG PO Q8H Y for NAUSEA AND/OR VOMITING , #10 TAB Prov:KALEB COWAN NP 11/29/16 Ondansetron (Ondansetron Odt) 4 Mg Tab.rapdis, 4 MG PO Q6H Y for NAUSEA AND/OR VOMITING, #30 TAB Prov:JESSICA KHAN MD 10/23/16 Pantoprazole* (Pantoprazole*) 40 Mg Tablet.dr, 40 MG PO DAILY@06 for 14 Days Prov:MERNA VÁZQUEZ MD 09/19/16 Allergies Allergies: Coded Allergies: tramadol (Verified Allergy, Intermediate, 01/21/17) acetaminophen (Verified Allergy, Mild, itchy, 01/21/17) hydrocodone bit (Verified Allergy, Mild, itchy, 01/21/17) hydrocodone (Unverified Allergy, Unknown, 01/21/17) ketorolac (Unverified Allergy, Unknown, 09/15/16) PMhx/Soc Chronic abdominal pain, opioid dependence History of Surgery: No Anesthesia Reaction: No Hx Neurological Disorder: No Hx Respiratory Disorders: No (COPD) Hx Cardiac Disorders: Yes (HTN) Hx Psychiatric Problems: No Hx Miscellaneous Medical Probl: Yes (small bowel obstruction.) Hx Alcohol Use: No Hx Substance Use: No Hx Tobacco Use: No Smoking Status: Never smoker FmHx Family History: No diabetes Physical Exam Vitals Vital Signs Date Time Temp Pulse Resp B/P Pulse Ox O2 Delivery O2 Flow Rate FiO2 01/21/17 16:01 87 14 104/75 94 Room Air 01/21/17 14:12 93 22 128/94 99 Room Air 01/21/17 13:02 98.1 74 18 163/71 97 Physical Exam GENERAL: Well-developed, well-nourished, well-hydrated, in no apparent distress , looks nontoxic in appearance HEENT: Moist mucous membranes, pink conjunctiva, no cervical spine tenderness or step-off deformities, no goiter, no jaundice or icterus, extraocular movements intact without pain. No submandibular induration, and no pharyngeal erythema NEURO: Alert and oriented 3, cranial nerves II through XII intact bilaterally, pupils equal round reactive to light, no focal deficits or facial asymmetry, sensation intact distally Strength 5/5 in upper and lower extremities bilaterally CARDIAC: Regular rate and rhythm, no murmurs rubs or gallops LUNGS: Clear bilaterally no wheezing crackles or stridor ABDOMEN: Soft nontender, no guarding, no rigidity, no rebound, no psoas sign no obturator sign. Normoactive bowel sounds SKIN: Warm and dry to touch, no abrasions, contusions, or hematomas, no lacerations, no ecchymosis, no target lesions, and without ulcers EXTREMITIES: No clubbing cyanosis or edema, calves are bilaterally symmetrical, no Homans sign, no popliteal cord sign. Distal pulses equal and bilateral PSYCH: Normal affect without agitation or irritability Result Diagram: 01/21/17 1425 01/21/17 1425 Results 24 hrs Laboratory Tests Test 01/21/17 14:25 White Blood Count 6.010^3/ul Red Blood Count 5.0510^6/ul Hemoglobin 15.5g/dl Hematocrit 46.1% Mean Corpuscular Volume 91.3fl Mean Corpuscular Hemoglobin 30.7pg Mean Corpuscular Hemoglobin Concent 33.6g/dl Red Cell Distribution Width 13.1% Platelet Count 65870^3/UL Mean Platelet Volume 10.5fl Neutrophils % 74.0% Lymphocytes % 17.5% Monocytes % 5.8% Eosinophils % 1.7% Basophils % 0.7% Nucleated Red Blood Cells % 0.0/100WBC Neutrophils # 4.510^3/ul Lymphocytes # 1.110^3/ul Monocytes # 0.410^3/ul Eosinophils # 0.110^3/ul Basophils # 0.010^3/ul Nucleated Red Blood Cells # 0.010^3/ul Urine Color LT. YELLOW Urine Clarity SLIGHTLY CLOUDY Urine pH 6.0 Urine Specific [place] 1.025 Urine Ketones NEGATIVE Urine Nitrite NEGATIVE Urine Bilirubin NEGATIVE Urine Urobilinogen 0.2 E.U./dL Urine Leukocyte Esterase TRACE Urine Microscopic RBC 10-25/HPF Urine Microscopic WBC 10-25/HPF Urine Epithelial Cells FEW Urine Bacteria FEW Urine Hemoglobin 3+ Urine Glucose NEGATIVE% Urine Total Protein NEGATIVE Sodium Level 143mmol/L Potassium Level 4.1mmol/L Chloride Level 103mmol/L Carbon Dioxide Level 28mmol/L Anion Gap 16 Blood Urea Nitrogen 19mg/dl Creatinine 0.90mg/dl Glucose Level 107mg/dl Calcium Level 9.8mg/dl Total Bilirubin 0.2mg/dl Direct Bilirubin 0.00mg/dl Indirect Bilirubin 0.2mg/dl Aspartate Amino Transf (AST/SGOT) 46IU/L Alanine Aminotransferase (ALT/SGPT) 91IU/L Alkaline Phosphatase 160IU/L Total Protein 8.5g/dl Albumin 4.4g/dl Globulin 4.10g/dl Albumin/Globulin Ratio 1.07 Lipase 37U/L Current Medications Medications (Trade) Dose Ordered Sig/Roxy Route PRN Reason Start Time Stop Time Status Last Admin Dose Admin Ondansetron HCl (Zofran Inj) 4 mg ONCE STAT IM 01/21/17 14:15 01/21/17 14:18 DC 01/21/17 14:36 Tramadol HCl (Ultram) 50 mg ONCE ONCE PO 01/21/17 14:30 01/21/17 14:31 DC 01/21/17 14:36 Cephalexin (Keflex) 500 mg ONCE ONCE PO 01/21/17 15:30 01/21/17 15:31 DC 01/21/17 15:15 Procedures/MDM I administered Zofran 4 mg intramuscular injection and tramadol 50 mg p.o. Urine analysis was concerning for early urinary tract infection and I administered cephalexin 500 mg p.o. CBC and electrolytes are normal, liver function tests were unremarkable. This patient's vital signs are normal, repeat abdominal examination was performed by me and remains benign, she has way too many previous CT scans of the abdomen and pelvis to repeat one and I do not feel any further imaging today will change house attendant. She may in fact have a surgical abdominal issues such as appendicitis although for this we will manage with repeat abdominal examinations and reevaluation. I did tell her to return in 8 hours for repeat abdominal examination. I will not be prescribing her tramadol or opioid medications, for the she will have to follow-up with her pain specialist. Differential diagnoses considered, included but not limited to acute coronary syndrome, pulmonary embolism, aortic dissection, abdominal aortic aneurysm, sepsis, stroke, meningitis, encephalitis, pneumonia, appendicitis, cholecystitis , bowel obstruction, pyelonephritis, nephrolithiasis, cystitis, as well as metabolic, hematologic, and electrolyte abnormalities. As well as abscess, cellulitis, fractures, and dislocations. Patient feels much better at this time, and vital signs are normal, symptoms have improved. I did give strict instructions to return to the ED if symptoms continue or worsen, patient will otherwise follow-up with primary care physician. Patient understood instructions and agreed to plan. Departure Diagnosis: Primary Impression: UTI (urinary tract infection) Urinary tract infection type: acute cystitis Hematuria presence: without hematuria Qualified Code: N30.00 - Acute cystitis without hematuria Additional Impressions: Abdominal pain Abdominal location: generalized Qualified Code: R10.84 - Generalized abdominal pain Chronic pain syndrome Condition: Good Patient Instructions: Abdominal Pain, Bladder Infection, Female (Adult) BRITTNY GUERRIER MD January 21, 2017 21:24
== END 2017-01-21 16:05 | disposition home or self-care (01) ==
LOC: E/R 12:54
DX: N30.00 Acute cystitis without hematuria (principal); R10.84 Generalized abdominal pain; G89.4 Chronic pain syndrome; I10 Essential (primary) hypertension; J44.9 Chronic obstructive pulmonary disease, unspecified; R40.2142 Coma scale, eyes open, spontaneous, at arrival to emergency department; R40.2252 Coma scale, best verbal response, oriented, at arrival to emergency department; R40.2362 Coma scale, best motor response, obeys commands, at arrival to emergency department
CPT/HCPCS: 36415; 80053; 81001; 83690; 85025; 96372; J2405; Z7502; Z7610; 81003

== ENCOUNTER 2018-02-21 19:48 | Emergency (ER) | END 2018-02-22 05:20 | disposition home or self-care (01) ==

== ENCOUNTER 2018-04-01 18:19 | Emergency (ER) | END 2018-04-01 23:52 | disposition home or self-care (01) ==